=== PATIENT | male | born 1955 | race Caucasian/White ===

== ENCOUNTER 2017-11-09 04:53 | Observation (INO) | payer OTHER ==
[~2017-11-09] VITALS: Ht 185.4 cm; Wt 112.3 kg
[~2017-11-09 04:53] MED LIST: ACID BLOCKER; ALBU90OI61 INH; ALLO100 PO; ALLOPURINOL; AMLO10 PO; AMLO5; AMLO5 PO; AMLODIPINE; ASPI325; ASPI81CH; ASPI81CH PO; ATEN25 PO; ATEN50; ATEN50 PO; ATOR10 PO; ATOR20 PO; ATOR40TA; ATOR80 PO; AZIT250 PO; AZOR; BUME2 PO; CEPH500 PO; CITA20 PO; CITALOPRAM; CLIN300 PO; CLOP75 PO; COLCRYS0.6 MG PO; CRUTCH2 USE; CYCL10 PO; CYCL1OPSOA OP; Citalopram HBr40 MG PO; FOSI10; FOSI10 PO; FURO20 PO; FURO40 PO; HYDACE5 PO; HYDR1TAB94 PO; ISOMON20 PO; KETO10 PO; LASIX; LEVE500 PO; LEVFLO500 PO; LIPITOR; LISI20 PO; LISI5; LISI5 PO; LOSHYD100; LOVA20 PO; METO25 PO; METO25ER; METO50 PO; METO50ER; NAPR550 PO; NITR.3SL; NITR.3SL SL; NITR.4SL; NITR.4SL SL; NITR.4TPA; NITR.4TPA TOP; NITR2.5ER PO; NITRO; OLMESARTAN; OMEP20ER PO; ONDA4 PO; OXYACE5T PO; PARO20 PO; POTA10T PO; POTASSIUM; PRED20 PO; PROM25 PO; RANI150; RANI150 PO; RXNAPNA550 PO; Ranitidine HCl300 M1 PO; SILD50TA; SIMV20; SPIR25 PO; SPIR50 PO; TOBR.3OPSO OP; TORSE20 PO; WARF2 PO; WARF2.5 PO; WARF3 PO; WARF4 PO; WARF5 PO; XARELTO10 MG PO; ZANTAC; Zofran Odt4 MG SL
[2017-11-09 05:25] LABS: BASOPHILS ABSOLUTE AUTO 0.09 K/mm3 (0.00-0.23); BASOPHILS PERCENT AUTO 1 % (0-2); EOSINOPHILS ABSOLUTE AUTO 0.01 K/mm3 (0.00-0.68); EOSINOPHILS PERCENT AUTO 0 % (0-6); Hematocrit 43.3 % (37.0-53.0); Hemoglobin 14.7 g/dL (13.5-17.5); IMMATURE GRAN ABSOLUTE AUTO 0.05 K/mm3 (0.00-0.10); IMMATURE GRAN PERCENT AUTO 0 % (0-1); LYMPHOCYTES ABSOLUTE AUTO 1.08 K/mm3 (0.84-5.20); LYMPHOCYTES PERCENT AUTO 9 % (21-46); MONOCYTES ABSOLUTE AUTO 1.47 K/mm3 (0.16-1.47); MONOCYTES PERCENT AUTO 12 % (4-13); Mean Corpuscular HGB Conc 33.9 g/dL (31.5-36.5); Mean Corpuscular Volume 94 fL (80-100); Mean Platelet Volume 10.5 fL (9.1-12.4); NEUTROPHILS ABSOLUTE AUTO 9.87 K/mm3 (1.96-9.15); NEUTROPHILS PERCENT AUTO 79 % (41-73); Platelet Count 276 K/mm3 (150-400); RDW Coefficient Variation 14.3 % (11.7-14.2); RDW Standard Deviation 48.5 fL (35.1-46.3); White Blood Cell Count 12.57 K/mm3 (4.00-11.30)
[2017-11-09 05:48] LABS: Albumin, Blood 4.3 g/dL (3.4-5.0); Albumin/Globulin Ratio 0.9 (0.8-1.8); Bilirubin, Total 1.6 mg/dL (0.1-1.0); Bun/Creatinine Ratio 12.2 (12.0-20.0); Calcium, Blood 9.4 mg/dL (8.5-10.1); Creatinine, Blood 4.27 mg/dL (0.60-1.20); Globulin, Blood 4.7 g/dL (2.2-4.0); Potassium, Blood 3.8 mmol/L (3.5-5.5); Troponin I 0.186 ng/mL (0.000-0.040)
[2017-11-09 06:28] LABS: Creatine Kinase MB 6.9 ng/mL (0.0-3.6); Creatine Kinase MB Index 1.5 (0.0-4.0)
[2017-11-09 18:39] LABS: Source, Urine Clean Catch
[2017-11-09 18:54] LABS: U Amphetamine Screen DETECTED; U Barbituate Screen Not Detected; U Benzodiazapine Screen DETECTED; U Buprenorphine Screen Not Detected; U Cannabinoids Screen Not Detected; U Cocaine Screen Not Detected; U Methadone Screen Not Detected; U Methamphetamine Screen DETECTED; U Opiates Screen Not Detected; U Oxycodone Screen Not Detected; U Phencyclidine Screen Not Detected; U Propoxyphene Screen Not Detected
[2017-11-09 19:00] LABS: Appearance, Urine Clear (Clear); Bilirubin, Urine Neg (Neg); Blood, Urine 1+ (Neg); Color, Urine Yellow (P-Yellow); Glucose Qualitative, Urine Neg (Neg); Ketones, Urine Neg (Neg); Leukocyte Esterase, Urine Neg (Neg); Nitrite, Urine Neg (Neg); Protein, Urine 2+ (Neg); Urobilinogen, Urine NORM (Normal)
[2017-11-09 19:02] LABS: Bacteria Not Seen /hpf; Red Blood Cells, Urine 0-2 /hpf (0-2); Squamous Epithelial Cells Not Seen /hpf (Few); White Blood Cells, Urine 0-2 /hpf (0-5)
[2017-11-09] MEDS ORDERED: [UNRECOGNIZED DRUG - CODE] PO (19:51)
[2017-11-09] MEDS ORDERED: [UNRECOGNIZED DRUG - CODE] PO (19:53)
[2017-11-10 05:20] LABS: BASOPHILS ABSOLUTE AUTO 0.04 K/mm3 (0.00-0.23); BASOPHILS PERCENT AUTO 1 % (0-2); EOSINOPHILS PERCENT AUTO 1 % (0-6); Hematocrit 40.3 % (37.0-53.0); Hemoglobin 13.4 g/dL (13.5-17.5); IMMATURE GRAN ABSOLUTE AUTO 0.03 K/mm3 (0.00-0.10); IMMATURE GRAN PERCENT AUTO 0 % (0-1); LYMPHOCYTES ABSOLUTE AUTO 1.52 K/mm3 (0.84-5.20); LYMPHOCYTES PERCENT AUTO 19 % (21-46); MONOCYTES ABSOLUTE AUTO 1.05 K/mm3 (0.16-1.47); MONOCYTES PERCENT AUTO 13 % (4-13); Mean Corpuscular HGB 31.9 pg (26.0-34.0); Mean Corpuscular HGB Conc 33.3 g/dL (31.5-36.5); Mean Corpuscular Volume 96 fL (80-100); Mean Platelet Volume 10.8 fL (9.1-12.4); NEUTROPHILS ABSOLUTE AUTO 5.26 K/mm3 (1.96-9.15); NEUTROPHILS PERCENT AUTO 66 % (41-73); Platelet Count 203 K/mm3 (150-400); RDW Coefficient Variation 14.2 % (11.7-14.2); RDW Standard Deviation 49.9 fL (35.1-46.3)
[2017-11-10 05:47] LABS: Magnesium, Blood 2.2 mg/dL (1.6-2.4)
[2017-11-10 05:50] LABS: Albumin, Blood 3.5 g/dL (3.4-5.0); Anion Gap 11 mmol/L (6-16); Blood Urea Nitrogen 52 mg/dL (8-24); Bun/Creatinine Ratio 17.7 (12.0-20.0); CO2, Blood 23 mmol/L (21-32); CPK Creatine Kinase 444 U/L (39-308); Calcium, Blood 8.5 mg/dL (8.5-10.1); Chloride, Blood 109 mmol/L (98-108); Creatinine, Blood 2.94 mg/dL (0.60-1.20); Glomerular Filtration Rate 23 (60-); Glucose, Blood 87 mg/dL (70-99); Phosphorus, Blood 2.7 mg/dL (2.5-4.9); Potassium, Blood 3.6 mmol/L (3.5-5.5); Sodium, Blood 143 mmol/L (136-145)
[2017-11-11 05:20] LABS: BASOPHILS ABSOLUTE AUTO 0.04 K/mm3 (0.00-0.23); BASOPHILS PERCENT AUTO 1 % (0-2); EOSINOPHILS ABSOLUTE AUTO 0.15 K/mm3 (0.00-0.68); EOSINOPHILS PERCENT AUTO 2 % (0-6); Hematocrit 35.5 % (37.0-53.0); Hemoglobin 11.9 g/dL (13.5-17.5); IMMATURE GRAN ABSOLUTE AUTO 0.02 K/mm3 (0.00-0.10); IMMATURE GRAN PERCENT AUTO 0 % (0-1); LYMPHOCYTES ABSOLUTE AUTO 1.63 K/mm3 (0.84-5.20); LYMPHOCYTES PERCENT AUTO 24 % (21-46); MONOCYTES ABSOLUTE AUTO 1.03 K/mm3 (0.16-1.47); MONOCYTES PERCENT AUTO 15 % (4-13); Mean Corpuscular HGB 31.7 pg (26.0-34.0); Mean Corpuscular HGB Conc 33.5 g/dL (31.5-36.5); Mean Corpuscular Volume 95 fL (80-100); Mean Platelet Volume 10.9 fL (9.1-12.4); NEUTROPHILS ABSOLUTE AUTO 3.98 K/mm3 (1.96-9.15); NEUTROPHILS PERCENT AUTO 58 % (41-73); Platelet Count 194 K/mm3 (150-400); RDW Coefficient Variation 13.9 % (11.7-14.2); RDW Standard Deviation 48.6 fL (35.1-46.3); Red Blood Cell Count 3.75 M/mm3 (4.30-5.90); White Blood Cell Count 6.85 K/mm3 (4.00-11.30)
[2017-11-11 05:49] LABS: Magnesium, Blood 1.9 mg/dL (1.6-2.4)
[2017-11-11 05:56] LABS: Albumin, Blood 3.1 g/dL (3.4-5.0); Anion Gap 10 mmol/L (6-16); Blood Urea Nitrogen 48 mg/dL (8-24); Bun/Creatinine Ratio 24.2 (12.0-20.0); CO2, Blood 27 mmol/L (21-32); Calcium, Blood 8.3 mg/dL (8.5-10.1); Chloride, Blood 105 mmol/L (98-108); Creatinine, Blood 1.98 mg/dL (0.60-1.20); Glomerular Filtration Rate 37 (60-); Glucose, Blood 95 mg/dL (70-99); Phosphorus, Blood 2.4 mg/dL (2.5-4.9); Potassium, Blood 3.2 mmol/L (3.5-5.5); Sodium, Blood 142 mmol/L (136-145)
[2017-11-11] MEDS ORDERED: ACETAMINOPHEN500 MG PO (14:43)
== END 2017-11-11 17:13 | disposition home or self-care (01) ==
LOC: ER 04:53 → ERHOLD 04:54 → PCU 06:17 → ERHOLD 06:17 → ER 06:17 → PCU 12:39 → ERHOLD 12:39 → PCU 12:57
PROVIDERS: Emergency Medicine; Internal Medicine Endocrinology, Diabetes & Metabolism
DX: G92 Toxic encephalopathy (principal); F15.129 Other stimulant abuse with intoxication, unspecified; I13.0 Hypertensive heart and chronic kidney disease with heart failure and stage 1 through stage 4 chronic kidney disease, or unspecified chronic kidney disease; I50.22 Chronic systolic (congestive) heart failure; N18.3 Chronic kidney disease, stage 3 (moderate); I48.2 Chronic atrial fibrillation; E78.5 Hyperlipidemia, unspecified; F32.9 Major depressive disorder, single episode, unspecified; Z87.891 Personal history of nicotine dependence; E78.00 Pure hypercholesterolemia, unspecified; G47.33 Obstructive sleep apnea (adult) (pediatric); I25.10 Atherosclerotic heart disease of native coronary artery without angina pectoris; Z95.1 Presence of aortocoronary bypass graft
CPT/HCPCS: 36415; 71046; 73502; 76770; 80053; 80069; 81001; 82550; 82553; 83690; 83735; 84484; 85025; 87086; 93005; 93010; 96361; 96374; 97161; 97165; 99285; C9113; G0378; G8978; G8979; G8980; G8987; G8988; G8989; J2060; J3480; J7030; J7050; J7070

== ENCOUNTER 2017-11-24 07:50 | Emergency (ER) | payer OTHER ==
[~2017-11-24] VITALS: Ht 182.9 cm; Wt 115.2 kg
[~2017-11-24 07:50] MED LIST changes: +ACETAMINOPHEN500 MG PO; +[UNRECOGNIZED DRUG - CODE] PO; +[UNRECOGNIZED DRUG - CODE] PO
== END 2017-11-24 08:25 | disposition left against medical advice (07) ==
LOC: ER 07:50
DX: R07.9 Chest pain, unspecified (principal); I48.91 Unspecified atrial fibrillation; I11.0 Hypertensive heart disease with heart failure; I50.9 Heart failure, unspecified; E78.00 Pure hypercholesterolemia, unspecified; Z88.8 Allergy status to other drugs, medicaments and biological substances; Z91.012 Allergy to eggs; Z79.899 Other long term (current) drug therapy
CPT/HCPCS: 93005; 93010; 99284

== ENCOUNTER 2017-12-29 19:46 | Observation (INO) | payer OTHER ==
[~2017-12-29] VITALS: Ht 185.4 cm; Wt 114.3 kg
[~2017-12-29 19:46] MED LIST changes: +CRUTCH4 XX
[2017-12-29 20:13] LABS: BASOPHILS ABSOLUTE AUTO 0.06 K/mm3 (0.00-0.23); BASOPHILS PERCENT AUTO 1 % (0-2); EOSINOPHILS ABSOLUTE AUTO 0.22 K/mm3 (0.00-0.68); EOSINOPHILS PERCENT AUTO 3 % (0-6); Hematocrit 39.6 % (37.0-53.0); Hemoglobin 13.1 g/dL (13.5-17.5); IMMATURE GRAN ABSOLUTE AUTO 0.02 K/mm3 (0.00-0.10); IMMATURE GRAN PERCENT AUTO 0 % (0-1); LYMPHOCYTES ABSOLUTE AUTO 1.78 K/mm3 (0.84-5.20); LYMPHOCYTES PERCENT AUTO 21 % (21-46); MONOCYTES ABSOLUTE AUTO 1.12 K/mm3 (0.16-1.47); MONOCYTES PERCENT AUTO 13 % (4-13); Mean Corpuscular HGB 31.9 pg (26.0-34.0); Mean Corpuscular HGB Conc 33.1 g/dL (31.5-36.5); Mean Corpuscular Volume 96 fL (80-100); Mean Platelet Volume 9.7 fL (9.1-12.4); NEUTROPHILS ABSOLUTE AUTO 5.21 K/mm3 (1.96-9.15); NEUTROPHILS PERCENT AUTO 62 % (41-73); Platelet Count 300 K/mm3 (150-400); RDW Coefficient Variation 13.8 % (11.7-14.2); RDW Standard Deviation 49.5 fL (35.1-46.3); Red Blood Cell Count 4.11 M/mm3 (4.30-5.90); White Blood Cell Count 8.41 K/mm3 (4.00-11.30)
[2017-12-29 20:31] LABS: Albumin, Blood 3.5 g/dL (3.4-5.0); Albumin/Globulin Ratio 0.9 (0.8-1.8); Bilirubin, Total 0.6 mg/dL (0.1-1.0); Calcium, Blood 8.7 mg/dL (8.5-10.1); Creatinine, Blood 3.24 mg/dL (0.60-1.20); Globulin, Blood 4.1 g/dL (2.2-4.0); Potassium, Blood 4.1 mmol/L (3.5-5.5); Total Protein, Blood 7.6 g/dL (6.4-8.2); Troponin I 0.087 ng/mL (0.000-0.040)
[2017-12-29 22:53] LABS: Source, Urine Clean Catch
[2017-12-29 22:55] LABS: Bilirubin, Urine Neg (Neg); Blood, Urine Neg (Neg); Glucose Qualitative, Urine Neg (Neg); Ketones, Urine Neg (Neg); Leukocyte Esterase, Urine Neg (Neg); Nitrite, Urine Neg (Neg); Protein, Urine Neg (Neg); Urobilinogen, Urine NORM (Normal)
[2017-12-29 22:59] LABS: Appearance, Urine Clear (Clear); Color, Urine Yellow (P-Yellow)
[2017-12-29 23:07] LABS: U Amphetamine Screen DETECTED
[2017-12-29 23:08] LABS: U Barbituate Screen Not Detected; U Benzodiazapine Screen Not Detected; U Buprenorphine Screen Not Detected; U Cannabinoids Screen DETECTED; U Cocaine Screen Not Detected; U Methadone Screen Not Detected; U Methamphetamine Screen DETECTED; U Opiates Screen DETECTED; U Oxycodone Screen Not Detected; U Phencyclidine Screen Not Detected; U Propoxyphene Screen Not Detected
[2017-12-30 04:34] LABS: Hematocrit 38.6 % (37.0-53.0); Hemoglobin 12.6 g/dL (13.5-17.5); Mean Corpuscular HGB 31.8 pg (26.0-34.0); Mean Corpuscular HGB Conc 32.6 g/dL (31.5-36.5); Mean Corpuscular Volume 98 fL (80-100); Mean Platelet Volume 9.8 fL (9.1-12.4); Platelet Count 257 K/mm3 (150-400); RDW Coefficient Variation 13.7 % (11.7-14.2); RDW Standard Deviation 49.1 fL (35.1-46.3); Red Blood Cell Count 3.96 M/mm3 (4.30-5.90); White Blood Cell Count 8.22 K/mm3 (4.00-11.30)
[2017-12-30 04:55] LABS: Albumin, Blood 3.1 g/dL (3.4-5.0); Albumin/Globulin Ratio 0.8 (0.8-1.8); Bilirubin, Total 0.5 mg/dL (0.1-1.0); Calcium, Blood 7.7 mg/dL (8.5-10.1); Creatinine, Blood 2.75 mg/dL (0.60-1.20); Potassium, Blood 3.9 mmol/L (3.5-5.5); Total Protein, Blood 7.1 g/dL (6.4-8.2)
[2017-12-30 05:04] LABS: Troponin I 0.061 ng/mL (0.000-0.040)
[2017-12-30 12:30] LABS: Troponin I 0.045 ng/mL (0.000-0.040)
[2017-12-30 20:21] LABS: Troponin I 0.044 ng/mL (0.000-0.040)
[2017-12-31 05:36] LABS: Hematocrit 41.3 % (37.0-53.0); Hemoglobin 13.5 g/dL (13.5-17.5)
[2017-12-31 06:05] LABS: Albumin, Blood 3.3 g/dL (3.4-5.0); Anion Gap 9 mmol/L (6-16); Blood Urea Nitrogen 40 mg/dL (8-24); Bun/Creatinine Ratio 22.9 (12.0-20.0); CO2, Blood 23 mmol/L (21-32); Calcium, Blood 8.5 mg/dL (8.5-10.1); Chloride, Blood 108 mmol/L (98-108); Creatinine, Blood 1.75 mg/dL (0.60-1.20); Glomerular Filtration Rate 42 (60-); Glucose, Blood 90 mg/dL (70-99); Magnesium, Blood 1.7 mg/dL (1.6-2.4); Phosphorus, Blood 2.7 mg/dL (2.5-4.9); Potassium, Blood 4.7 mmol/L (3.5-5.5); Sodium, Blood 140 mmol/L (136-145)
[2017-12-31] MEDS ORDERED: DOCU100 PO (13:56)
== END 2017-12-31 14:29 | disposition home or self-care (01) ==
LOC: ER 19:46 → MEDS 19:47 → ENPENDDIS 12-31 14:00 → MEDS 12-31 14:29
PROVIDERS: Emergency Medicine; Internal Medicine; Internal Medicine Nephrology
DX: R55 Syncope and collapse (principal); N17.0 Acute kidney failure with tubular necrosis; E86.0 Dehydration; I50.22 Chronic systolic (congestive) heart failure; I13.0 Hypertensive heart and chronic kidney disease with heart failure and stage 1 through stage 4 chronic kidney disease, or unspecified chronic kidney disease; N18.3 Chronic kidney disease, stage 3 (moderate); D63.1 Anemia in chronic kidney disease; S70.01XA Contusion of right hip, initial encounter; E86.9 Volume depletion, unspecified; I25.5 Ischemic cardiomyopathy; I48.2 Chronic atrial fibrillation; F15.10 Other stimulant abuse, uncomplicated; E88.09 Other disorders of plasma-protein metabolism, not elsewhere classified; I25.10 Atherosclerotic heart disease of native coronary artery without angina pectoris; F32.9 Major depressive disorder, single episode, unspecified; Z88.8 Allergy status to other drugs, medicaments and biological substances; Z79.899 Other long term (current) drug therapy; Z95.1 Presence of aortocoronary bypass graft; Z86.19 Personal history of other infectious and parasitic diseases
CPT/HCPCS: 36415; 36416; 71046; 76770; 80053; 80069; 81003; 82550; 83735; 83880; 84484; 85014; 85018; 85025; 85027; 85379; 87086; 93005; 93010; 94760; 96360; 96361; 96372; 99285-25; C8929; G0378; J1650; J7030; Q9957

== ENCOUNTER 2018-02-10 11:02 | Emergency (ER) | payer OTHER ==
[~2018-02-10] VITALS: Ht 185.4 cm; Wt 108.9 kg
[~2018-02-10 11:02] MED LIST changes: +DOCU100 PO
[2018-02-10 11:39] LABS: BASOPHILS ABSOLUTE AUTO 0.09 K/mm3 (0.00-0.23); BASOPHILS PERCENT AUTO 1 % (0-2); EOSINOPHILS ABSOLUTE AUTO 0.16 K/mm3 (0.00-0.68); EOSINOPHILS PERCENT AUTO 2 % (0-6); Hemoglobin 13.8 g/dL (13.5-17.5); IMMATURE GRAN ABSOLUTE AUTO 0.01 K/mm3 (0.00-0.10); IMMATURE GRAN PERCENT AUTO 0 % (0-1); LYMPHOCYTES ABSOLUTE AUTO 1.58 K/mm3 (0.84-5.20); LYMPHOCYTES PERCENT AUTO 21 % (21-46); MONOCYTES ABSOLUTE AUTO 0.89 K/mm3 (0.16-1.47); MONOCYTES PERCENT AUTO 12 % (4-13); Mean Corpuscular HGB Conc 32.9 g/dL (31.5-36.5); Mean Corpuscular Volume 94 fL (80-100); Mean Platelet Volume 9.7 fL (9.1-12.4); NEUTROPHILS ABSOLUTE AUTO 4.97 K/mm3 (1.96-9.15); NEUTROPHILS PERCENT AUTO 65 % (41-73); Platelet Count 306 K/mm3 (150-400); RDW Coefficient Variation 13.2 % (11.7-14.2); RDW Standard Deviation 46.6 fL (35.1-46.3); Red Blood Cell Count 4.45 M/mm3 (4.30-5.90)
[2018-02-10 11:58] LABS: Bun/Creatinine Ratio 10.6 (12.0-20.0); Calcium, Blood 8.9 mg/dL (8.5-10.1); Creatinine, Blood 1.6 mg/dL (0.60-1.20); Potassium, Blood 3.1 mmol/L (3.5-5.5); Troponin I 0.089 ng/mL (0.000-0.040)
[2018-02-10 11:59] LABS: Albumin, Blood 3.9 g/dL (3.4-5.0); Albumin/Globulin Ratio 0.8 (0.8-1.8); Bilirubin, Total 1.1 mg/dL (0.1-1.0); Globulin, Blood 4.7 g/dL (2.2-4.0); Total Protein, Blood 8.6 g/dL (6.4-8.2)
== END 2018-02-10 17:06 | disposition home or self-care (01) ==
LOC: ER 11:02
PROVIDERS: Emergency Medicine
DX: I20.8 Other forms of angina pectoris (principal); E87.6 Hypokalemia; I48.91 Unspecified atrial fibrillation; I50.9 Heart failure, unspecified; Z95.1 Presence of aortocoronary bypass graft; Z87.891 Personal history of nicotine dependence
CPT/HCPCS: 36415; 71046; 80053; 83880; 84484; 85025; 93005; 93010; 99284-25

== ENCOUNTER 2018-02-19 16:17 | Emergency (ER) | payer OTHER ==
[~2018-02-19] VITALS: Ht 185.4 cm; Wt 112.9 kg
[2018-02-19 16:48] LABS: BASOPHILS ABSOLUTE AUTO 0.06 K/mm3 (0.00-0.23); BASOPHILS PERCENT AUTO 1 % (0-2); EOSINOPHILS ABSOLUTE AUTO 0.12 K/mm3 (0.00-0.68); EOSINOPHILS PERCENT AUTO 1 % (0-6); Hematocrit 40.2 % (37.0-53.0); Hemoglobin 12.7 g/dL (13.5-17.5); IMMATURE GRAN ABSOLUTE AUTO 0.02 K/mm3 (0.00-0.10); IMMATURE GRAN PERCENT AUTO 0 % (0-1); LYMPHOCYTES ABSOLUTE AUTO 1.29 K/mm3 (0.84-5.20); LYMPHOCYTES PERCENT AUTO 14 % (21-46); MONOCYTES ABSOLUTE AUTO 1.12 K/mm3 (0.16-1.47); MONOCYTES PERCENT AUTO 12 % (4-13); Mean Corpuscular HGB 30.7 pg (26.0-34.0); Mean Corpuscular HGB Conc 31.6 g/dL (31.5-36.5); Mean Platelet Volume 10.2 fL (9.1-12.4); NEUTROPHILS ABSOLUTE AUTO 6.64 K/mm3 (1.96-9.15); NEUTROPHILS PERCENT AUTO 72 % (41-73); Platelet Count 278 K/mm3 (150-400); RDW Coefficient Variation 13.3 % (11.7-14.2); RDW Standard Deviation 48.1 fL (35.1-46.3); Red Blood Cell Count 4.14 M/mm3 (4.30-5.90); White Blood Cell Count 9.25 K/mm3 (4.00-11.30)
[2018-02-19 16:52] LABS: Mean Corpuscular Volume 97 fL (80-100)
[2018-02-19 16:59] LABS: International Normalized Ratio 1.11; Prothrombin Time Results 11.4 Sec (9.7-11.5)
[2018-02-19 17:08] LABS: Albumin, Blood 3.6 g/dL (3.4-5.0); Albumin/Globulin Ratio 0.8 (0.8-1.8); Bilirubin, Total 1.4 mg/dL (0.1-1.0); Bun/Creatinine Ratio 12.3 (12.0-20.0); Creatinine, Blood 1.46 mg/dL (0.60-1.20); Globulin, Blood 4.5 g/dL (2.2-4.0); Potassium, Blood 3.8 mmol/L (3.5-5.5); Total Protein, Blood 8.1 g/dL (6.4-8.2); Troponin I 0.052 ng/mL (0.000-0.040)
[2018-02-19] MEDS ORDERED: COMBIVENT RESPIM4 GM INH (18:15)
[2018-02-19] MEDS ORDERED: LEVO750 PO (18:39)
== END 2018-02-19 19:46 | disposition home or self-care (01) ==
LOC: ER 16:17
PROVIDERS: Internal Medicine
DX: J18.9 Pneumonia, unspecified organism (principal); I50.9 Heart failure, unspecified; I48.91 Unspecified atrial fibrillation; I25.2 Old myocardial infarction; Z88.8 Allergy status to other drugs, medicaments and biological substances; Z91.012 Allergy to eggs; Z79.899 Other long term (current) drug therapy; Z79.01 Long term (current) use of anticoagulants; Z79.51 Long term (current) use of inhaled steroids; Z87.891 Personal history of nicotine dependence
CPT/HCPCS: 36415; 71046; 80053; 83880; 84484; 85025; 85610; 93005; 93010; 94640; 99284-25

== ENCOUNTER 2018-02-21 18:36 | Emergency (ER) | payer OTHER ==
[~2018-02-21] VITALS: Ht 177.8 cm; Wt 104.3 kg
[~2018-02-21 18:36] MED LIST changes: +COMBIVENT RESPIM4 GM INH; +LEVO750 PO
[2018-02-21 19:15] LABS: BASOPHILS ABSOLUTE AUTO 0.06 K/mm3 (0.00-0.23); BASOPHILS PERCENT AUTO 1 % (0-2); EOSINOPHILS ABSOLUTE AUTO 0.09 K/mm3 (0.00-0.68); EOSINOPHILS PERCENT AUTO 1 % (0-6); Hematocrit 40.5 % (37.0-53.0); Hemoglobin 13.1 g/dL (13.5-17.5); IMMATURE GRAN ABSOLUTE AUTO 0.03 K/mm3 (0.00-0.10); IMMATURE GRAN PERCENT AUTO 0 % (0-1); LYMPHOCYTES ABSOLUTE AUTO 1.09 K/mm3 (0.84-5.20); LYMPHOCYTES PERCENT AUTO 11 % (21-46); MONOCYTES ABSOLUTE AUTO 1.66 K/mm3 (0.16-1.47); MONOCYTES PERCENT AUTO 16 % (4-13); Mean Corpuscular HGB 30.8 pg (26.0-34.0); Mean Corpuscular HGB Conc 32.3 g/dL (31.5-36.5); Mean Corpuscular Volume 95 fL (80-100); Mean Platelet Volume 10.3 fL (9.1-12.4); NEUTROPHILS ABSOLUTE AUTO 7.38 K/mm3 (1.96-9.15); NEUTROPHILS PERCENT AUTO 72 % (41-73); Platelet Count 304 K/mm3 (150-400); RDW Coefficient Variation 13.5 % (11.7-14.2); RDW Standard Deviation 47.3 fL (35.1-46.3); Red Blood Cell Count 4.26 M/mm3 (4.30-5.90); White Blood Cell Count 10.31 K/mm3 (4.00-11.30)
[2018-02-21 19:32] LABS: Albumin, Blood 3.5 g/dL (3.4-5.0); Albumin/Globulin Ratio 0.7 (0.8-1.8); Bilirubin, Total 1.3 mg/dL (0.1-1.0); Bun/Creatinine Ratio 12.1 (12.0-20.0); Creatinine, Blood 1.9 mg/dL (0.60-1.20); Globulin, Blood 4.7 g/dL (2.2-4.0); Potassium, Blood 3.9 mmol/L (3.5-5.5); Total Protein, Blood 8.2 g/dL (6.4-8.2); Troponin I 0.068 ng/mL (0.000-0.040)
[2018-02-21] MEDS ORDERED: Isosorbide Dini30 MG PO (21:35)
== END 2018-02-21 22:45 | disposition home or self-care (01) ==
LOC: ER 18:36
PROVIDERS: Emergency Medicine
DX: I50.9 Heart failure, unspecified (principal); I25.10 Atherosclerotic heart disease of native coronary artery without angina pectoris; I48.91 Unspecified atrial fibrillation; I25.2 Old myocardial infarction; F17.200 Nicotine dependence, unspecified, uncomplicated; Z88.8 Allergy status to other drugs, medicaments and biological substances; Z91.012 Allergy to eggs; Z79.01 Long term (current) use of anticoagulants; Z79.899 Other long term (current) drug therapy; Z79.51 Long term (current) use of inhaled steroids
CPT/HCPCS: 36415; 71046; 80053; 83880; 84484; 85025; 93005; 93010; 99285-25

== ENCOUNTER 2018-05-16 22:07 | Observation (INO) | payer OTHER ==
[~2018-05-16] VITALS: Ht 177.8 cm; Wt 104.3 kg
[~2018-05-16 22:07] MED LIST changes: +Isosorbide Dini30 MG PO
[2018-05-16 22:57] LABS: BASOPHILS ABSOLUTE AUTO 0.07 K/mm3 (0.00-0.23); BASOPHILS PERCENT AUTO 1 % (0-2); EOSINOPHILS ABSOLUTE AUTO 0.16 K/mm3 (0.00-0.68); EOSINOPHILS PERCENT AUTO 2 % (0-6); Hematocrit 40.7 % (37.0-53.0); Hemoglobin 13.1 g/dL (13.5-17.5); IMMATURE GRAN ABSOLUTE AUTO 0.02 K/mm3 (0.00-0.10); IMMATURE GRAN PERCENT AUTO 0 % (0-1); LYMPHOCYTES ABSOLUTE AUTO 1.43 K/mm3 (0.84-5.20); LYMPHOCYTES PERCENT AUTO 21 % (21-46); MONOCYTES ABSOLUTE AUTO 0.98 K/mm3 (0.16-1.47); MONOCYTES PERCENT AUTO 14 % (4-13); Mean Corpuscular HGB 30.9 pg (26.0-34.0); Mean Corpuscular HGB Conc 32.2 g/dL (31.5-36.5); Mean Corpuscular Volume 96 fL (80-100); Mean Platelet Volume 10.2 fL (9.1-12.4); NEUTROPHILS PERCENT AUTO 62 % (41-73); Platelet Count 225 K/mm3 (150-400); RDW Coefficient Variation 15.5 % (11.7-14.2); RDW Standard Deviation 54.5 fL (35.1-46.3); Red Blood Cell Count 4.24 M/mm3 (4.30-5.90); White Blood Cell Count 6.96 K/mm3 (4.00-11.30)
[2018-05-16 23:06] LABS: Source, Urine Clean Catch
[2018-05-16 23:09] LABS: Bilirubin, Urine Neg (Neg); Blood, Urine Neg (Neg); Glucose Qualitative, Urine Neg (Neg); Ketones, Urine Neg (Neg); Leukocyte Esterase, Urine Neg (Neg); Nitrite, Urine Neg (Neg); Protein, Urine Neg (Neg); Specific Gravity, Urine 1.015 (1.003-1.022); Urobilinogen, Urine NORM (Normal)
[2018-05-16 23:15] LABS: Appearance, Urine Clear (Clear); Color, Urine Yellow (P-Yellow)
[2018-05-16 23:21] LABS: Alanine Aminotransfer (ALT/SGP 42 U/L (12-78); Albumin, Blood 3.5 g/dL (3.4-5.0); Albumin/Globulin Ratio 0.8 (0.8-1.8); Alk Phos 137 U/L (50-136); Anion Gap 9 mmol/L (6-16); Aspartate Aminotrans (AST/SGOT 32 U/L (12-37); Bilirubin, Total 0.6 mg/dL (0.1-1.0); Blood Urea Nitrogen 34 mg/dL (8-24); Bun/Creatinine Ratio 16.3 (12.0-20.0); CO2, Blood 27 mmol/L (21-32); Calcium, Blood 8.1 mg/dL (8.5-10.1); Chloride, Blood 106 mmol/L (98-108); Creatinine, Blood 2.08 mg/dL (0.60-1.20); Globulin, Blood 4.5 g/dL (2.2-4.0); Glomerular Filtration Rate 35 (60-); Glucose, Blood 120 mg/dL (70-99); Potassium, Blood 3.7 mmol/L (3.5-5.5); Salicylate <1.7 mg/dL (2.8-20.0); Sodium, Blood 142 mmol/L (136-145)
[2018-05-16 23:25] LABS: Acetaminophen, Random <2.0 ug/mL (10.0-30.0); Ethanol (Alcohol), Blood, Med <3 mg/dL
[2018-05-16 23:26] LABS: U Amphetamine Screen DETECTED; U Barbituate Screen Not Detected; U Benzodiazapine Screen Not Detected; U Buprenorphine Screen Not Detected; U Cannabinoids Screen Not Detected; U Cocaine Screen Not Detected; U Methadone Screen Not Detected; U Methamphetamine Screen DETECTED; U Opiates Screen Not Detected; U Oxycodone Screen Not Detected; U Phencyclidine Screen Not Detected; U Propoxyphene Screen Not Detected
== END 2018-05-17 10:56 | disposition home or self-care (01) ==
LOC: ER 22:07 → EOR 22:08
PROVIDERS: Emergency Medicine
DX: F15.159 Other stimulant abuse with stimulant-induced psychotic disorder, unspecified (principal); I25.10 Atherosclerotic heart disease of native coronary artery without angina pectoris; Z88.8 Allergy status to other drugs, medicaments and biological substances; Z79.899 Other long term (current) drug therapy; Z95.1 Presence of aortocoronary bypass graft; Z79.2 Long term (current) use of antibiotics; Z79.02 Long term (current) use of antithrombotics/antiplatelets; Z91.14 Patient's other noncompliance with medication regimen
CPT/HCPCS: 70450; 80053; 81003; 84443; 85025; G0480; J7030

== ENCOUNTER → 2018-06-28 | Outpatient (CLI) | payer OTHER ==
[2018-06-28 18:36] LABS: BASOPHILS ABSOLUTE AUTO 0.13 K/mm3 (0.00-0.23); BASOPHILS PERCENT AUTO 1 % (0-2); EOSINOPHILS ABSOLUTE AUTO 0.13 K/mm3 (0.00-0.68); EOSINOPHILS PERCENT AUTO 1 % (0-6); Hematocrit 43.2 % (37.0-53.0); Hemoglobin 13.9 g/dL (13.5-17.5); IMMATURE GRAN ABSOLUTE AUTO 0.07 K/mm3 (0.00-0.10); IMMATURE GRAN PERCENT AUTO 1 % (0-1); LYMPHOCYTES ABSOLUTE AUTO 1.43 K/mm3 (0.84-5.20); LYMPHOCYTES PERCENT AUTO 15 % (21-46); MONOCYTES ABSOLUTE AUTO 1.46 K/mm3 (0.16-1.47); MONOCYTES PERCENT AUTO 16 % (4-13); Mean Corpuscular HGB 30.9 pg (26.0-34.0); Mean Corpuscular HGB Conc 32.2 g/dL (31.5-36.5); Mean Corpuscular Volume 96 fL (80-100); Mean Platelet Volume 11.4 fL (9.1-12.4); NEUTROPHILS ABSOLUTE AUTO 6.06 K/mm3 (1.96-9.15); NEUTROPHILS PERCENT AUTO 65 % (41-73); Platelet Count 229 K/mm3 (150-400); RDW Coefficient Variation 14.8 % (11.7-14.2); RDW Standard Deviation 51.7 fL (35.1-46.3); White Blood Cell Count 9.28 K/mm3 (4.00-11.30)
[2018-06-28 19:51] LABS: Alanine Aminotransfer (ALT/SGP 28 U/L (12-78); Albumin, Blood 3.7 g/dL (3.4-5.0); Albumin/Globulin Ratio 0.8 (0.8-1.8); Alk Phos 143 U/L (50-136); Anion Gap 9 mmol/L (6-16); Aspartate Aminotrans (AST/SGOT 23 U/L (12-37); Bilirubin, Total 2.1 mg/dL (0.1-1.0); Blood Urea Nitrogen 22 mg/dL (8-24); CHOL/HDL RATIO 2.7; CO2, Blood 27 mmol/L (21-32); Calcium, Blood 8.5 mg/dL (8.5-10.1); Chloride, Blood 102 mmol/L (98-108); Cholesterol 97 mg/dL (50-200); Creatinine, Blood 1.47 mg/dL (0.60-1.20); Free Thyroxine 1.41 ng/dL (0.70-1.60); Globulin, Blood 4.5 g/dL (2.2-4.0); Glomerular Filtration Rate 52 (60-); Glucose, Blood 94 mg/dL (70-99); HDL Cholesterol 36 mg/dL (>39); LDL/HDL RATIO 1.1; Low Density Lipoprotein Chol 39 mg/dL (0-110); Potassium, Blood 3.9 mmol/L (3.5-5.5); Sodium, Blood 138 mmol/L (136-145); Total Protein, Blood 8.2 g/dL (6.4-8.2); Triglycerides 110 mg/dL (30-160); Uric Acid, Blood 10.4 mg/dL (3.5-7.2); Very Low Density Lipoprot Chol 22 mg/dL (6-32)
== END ==
LOC: LAB SHORT 18:10 → LAB 18:10
PROVIDERS: Nurse Practitioner Family
DX: M10.9 Gout, unspecified (principal); I50.9 Heart failure, unspecified; I10 Essential (primary) hypertension
CPT/HCPCS: 80053; 80061; 83880; 84439; 84443; 84550; 85025

== ENCOUNTER 2018-07-04 15:05 | Emergency (ER) | payer OTHER ==
[~2018-07-04] VITALS: Ht 185.4 cm; Wt 108.9 kg
[2018-07-04 16:07] LABS: BASOPHILS PERCENT AUTO 1 % (0-2); EOSINOPHILS ABSOLUTE AUTO 0.08 K/mm3 (0.00-0.68); EOSINOPHILS PERCENT AUTO 1 % (0-6); Hematocrit 41.7 % (37.0-53.0); Hemoglobin 13.2 g/dL (13.5-17.5); IMMATURE GRAN ABSOLUTE AUTO 0.03 K/mm3 (0.00-0.10); IMMATURE GRAN PERCENT AUTO 0 % (0-1); LYMPHOCYTES ABSOLUTE AUTO 1.46 K/mm3 (0.84-5.20); LYMPHOCYTES PERCENT AUTO 15 % (21-46); MONOCYTES ABSOLUTE AUTO 1.16 K/mm3 (0.16-1.47); MONOCYTES PERCENT AUTO 12 % (4-13); Mean Corpuscular HGB 30.7 pg (26.0-34.0); Mean Corpuscular HGB Conc 31.7 g/dL (31.5-36.5); Mean Corpuscular Volume 97 fL (80-100); Mean Platelet Volume 9.9 fL (9.1-12.4); NEUTROPHILS ABSOLUTE AUTO 6.67 K/mm3 (1.96-9.15); NEUTROPHILS PERCENT AUTO 70 % (41-73); Platelet Count 262 K/mm3 (150-400); RDW Coefficient Variation 14.7 % (11.7-14.2); RDW Standard Deviation 52.1 fL (35.1-46.3)
[2018-07-04 16:39] LABS: Albumin, Blood 3.8 g/dL (3.4-5.0); Albumin/Globulin Ratio 0.9 (0.8-1.8); Bilirubin, Total 1.5 mg/dL (0.1-1.0); Bun/Creatinine Ratio 16.9 (12.0-20.0); Calcium, Blood 9.1 mg/dL (8.5-10.1); Creatinine, Blood 1.36 mg/dL (0.60-1.20); Globulin, Blood 4.3 g/dL (2.2-4.0); Potassium, Blood 3.7 mmol/L (3.5-5.5); Total Protein, Blood 8.1 g/dL (6.4-8.2); Troponin I 0.078 ng/mL (0.000-0.040)
== END 2018-07-04 18:15 | disposition home or self-care (01) ==
LOC: ER 15:05
PROVIDERS: Physician Assistant
DX: I50.9 Heart failure, unspecified (principal); N18.9 Chronic kidney disease, unspecified; I48.91 Unspecified atrial fibrillation; Z91.012 Allergy to eggs; Z88.8 Allergy status to other drugs, medicaments and biological substances; Z79.899 Other long term (current) drug therapy; I25.2 Old myocardial infarction; Z87.891 Personal history of nicotine dependence
CPT/HCPCS: 36415; 71046; 80053; 83880; 84484; 85025; 93005; 93010; 94640; 99285-25

== ENCOUNTER 2018-08-08 17:47 | Inpatient (IN) | payer OTHER ==
[~2018-08-08] VITALS: Ht 185.4 cm; Wt 106.9 kg
[2018-08-08 18:36] LABS: BASOPHILS ABSOLUTE AUTO 0.05 K/mm3 (0.00-0.23); BASOPHILS PERCENT AUTO 0 % (0-2); EOSINOPHILS ABSOLUTE AUTO 0.07 K/mm3 (0.00-0.68); EOSINOPHILS PERCENT AUTO 1 % (0-6); Hematocrit 43.5 % (37.0-53.0); IMMATURE GRAN ABSOLUTE AUTO 0.04 K/mm3 (0.00-0.10); IMMATURE GRAN PERCENT AUTO 0 % (0-1); LYMPHOCYTES ABSOLUTE AUTO 0.99 K/mm3 (0.84-5.20); LYMPHOCYTES PERCENT AUTO 9 % (21-46); MONOCYTES ABSOLUTE AUTO 1.36 K/mm3 (0.16-1.47); MONOCYTES PERCENT AUTO 12 % (4-13); Mean Corpuscular HGB 30.8 pg (26.0-34.0); Mean Corpuscular HGB Conc 32.2 g/dL (31.5-36.5); Mean Corpuscular Volume 96 fL (80-100); Mean Platelet Volume 9.9 fL (9.1-12.4); NEUTROPHILS ABSOLUTE AUTO 9.17 K/mm3 (1.96-9.15); NEUTROPHILS PERCENT AUTO 79 % (41-73); Platelet Count 246 K/mm3 (150-400); RDW Coefficient Variation 14.3 % (11.7-14.2); RDW Standard Deviation 49.9 fL (35.1-46.3); Red Blood Cell Count 4.55 M/mm3 (4.30-5.90); White Blood Cell Count 11.68 K/mm3 (4.00-11.30)
[2018-08-08 18:57] LABS: Alanine Aminotransfer (ALT/SGP 37 U/L (12-78); Albumin, Blood 3.8 g/dL (3.4-5.0); Albumin/Globulin Ratio 0.8 (0.8-1.8); Alk Phos 136 U/L (50-136); Anion Gap 7 mmol/L (6-16); Aspartate Aminotrans (AST/SGOT 44 U/L (12-37); Bilirubin, Total 2.8 mg/dL (0.1-1.0); Blood Urea Nitrogen 21 mg/dL (8-24); Bun/Creatinine Ratio 16.4 (12.0-20.0); CO2, Blood 29 mmol/L (21-32); Chloride, Blood 103 mmol/L (98-108); Creatinine, Blood 1.28 mg/dL (0.60-1.20); Globulin, Blood 4.6 g/dL (2.2-4.0); Glomerular Filtration Rate >60 (60-); Glucose, Blood 109 mg/dL (70-99); Potassium, Blood 2.9 mmol/L (3.5-5.5); Sodium, Blood 139 mmol/L (136-145); Total Protein, Blood 8.4 g/dL (6.4-8.2); Troponin I 0.127 ng/mL (0.000-0.040)
[2018-08-08] MEDS ORDERED: Isosorbide Mono60 MG PO (21:05)
[2018-08-08] MEDS ORDERED: COLCRYS0.6 MG PO (21:08)
[2018-08-08] MEDS ORDERED: Lopressor 25 mg25 MG PO (21:10)
[2018-08-08] MEDS ORDERED: Zantac150 MG PO (21:10)
[2018-08-08] MEDS ORDERED: TORSE20 PO (21:11)
[2018-08-08] MEDS ORDERED: SPIR25 PO (21:11)
[2018-08-08] MEDS ORDERED: Prinivil10 MG PO (21:11)
[2018-08-08] MEDS ORDERED: NITR.4SL SL (21:12)
[2018-08-09 02:29] LABS: Source, Urine Clean Catch
[2018-08-09 02:32] LABS: Bilirubin, Urine Neg (Neg); Blood, Urine Neg (Neg); Glucose Qualitative, Urine Neg (Neg); Ketones, Urine Neg (Neg); Leukocyte Esterase, Urine Neg (Neg); Nitrite, Urine Neg (Neg); Protein, Urine 3+ (Neg); Specific Gravity, Urine 1.015 (1.003-1.022); Urobilinogen, Urine 1+ (Normal)
[2018-08-09 02:35] LABS: Appearance, Urine Clear (Clear); Color, Urine Yellow (P-Yellow)
[2018-08-09 02:40] LABS: Bacteria Few /hpf; Hyaline Casts 0-2 /lpf (0-2); Red Blood Cells, Urine 0-2 /hpf (0-2); Squamous Epithelial Cells Not Seen /hpf (Few); White Blood Cells, Urine 0-2 /hpf (0-5)
[2018-08-09 02:42] LABS: Troponin I 0.144 ng/mL (0.000-0.040)
[2018-08-09 02:42] LABS: U Amphetamine Screen Not Detected; U Barbituate Screen Not Detected; U Benzodiazapine Screen Not Detected; U Buprenorphine Screen Not Detected; U Cannabinoids Screen DETECTED; U Cocaine Screen Not Detected; U Methadone Screen Not Detected; U Methamphetamine Screen Not Detected; U Opiates Screen Not Detected; U Oxycodone Screen Not Detected; U Phencyclidine Screen Not Detected; U Propoxyphene Screen Not Detected
[2018-08-09 05:41] LABS: Adenovirus Not Detected (NOT DETECT); Bordetella pertussis Not Detected (NOT DETECT); Chlamydophila pneumoniae Not Detected (NOT DETECT); Coronavirus 229E Not Detected (NOT DETECT); Coronavirus HKU1 Not Detected (NOT DETECT); Coronavirus NL63 Not Detected (NOT DETECT); Coronavirus OC43 Not Detected (NOT DETECT); Human Metapneumovirus Not Detected (NOT DETECT); Human Rhinovirus/Enterovirus Not Detected (NOT DETECT); Influenza A Not Detected (NOT DETECT); Influenza A/2009-H1 Not Detected (NOT DETECT); Influenza A/H1 Not Detected (NOT DETECT); Influenza A/H3 Not Detected (NOT DETECT); Influenza B Not Detected (NOT DETECT); Mycoplasma pneumoniae Not Detected (NOT DETECT); Parainfluenza Virus 1 Not Detected (NOT DETECT); Parainfluenza Virus 2 Not Detected (NOT DETECT); Parainfluenza Virus 3 Not Detected (NOT DETECT); Parainfluenza Virus 4 Not Detected (NOT DETECT); Respiratory Syncytial Virus Not Detected (NOT DETECT)
--- NOTE | 2018-08-09 06:02 | NUR ---
NOC SHIFT SUMMARY PT ADMITTED LAST NIGHT FOR N/V, LOW k, AND ELEVATED TROP. HE IS PLEASANT AND COOPERATIVE WITH CARE. NO NEW S/S NOTED THIS SHIFT. VSS. PT WAS NAUSEATED SHORTLY AFTER ADMIT. TREATED WITH ZOFRAN WHICH RESOLVED THIS. PT HAS RESTED IN BED THIS NIGHT. NO OTHER COMPLAINTS BESIDES THE NAUSEA. APPEARS IN NO ACUTE DISTRESS. WILL CONTINUE TO MONITOR.
[2018-08-09 10:28] LABS: Hematocrit 40.7 % (37.0-53.0); Hemoglobin 12.8 g/dL (13.5-17.5); Mean Corpuscular HGB 30.5 pg (26.0-34.0); Mean Corpuscular HGB Conc 31.4 g/dL (31.5-36.5); Mean Corpuscular Volume 97 fL (80-100); Platelet Count 197 K/mm3 (150-400); RDW Coefficient Variation 14.3 % (11.7-14.2); RDW Standard Deviation 50.5 fL (35.1-46.3); White Blood Cell Count 9.24 K/mm3 (4.00-11.30)
[2018-08-09 10:57] LABS: Albumin, Blood 3.1 g/dL (3.4-5.0); Albumin/Globulin Ratio 0.7 (0.8-1.8); Bun/Creatinine Ratio 15.9 (12.0-20.0); Calcium, Blood 8.5 mg/dL (8.5-10.1); Creatinine, Blood 1.38 mg/dL (0.60-1.20); Globulin, Blood 4.3 g/dL (2.2-4.0); Potassium, Blood 3.2 mmol/L (3.5-5.5); Total Protein, Blood 7.4 g/dL (6.4-8.2)
[2018-08-09 10:59] LABS: Troponin I 0.13 ng/mL (0.000-0.040)
[2018-08-09 16:39] LABS: Hemoglobin 12.3 g/dL (13.5-17.5)
--- NOTE | 2018-08-09 19:54 | NUR ---
SUMMARY PT IS A/O X4, PLEASANT/COOPERATIVE AFFECT. THIS AM HE STATE NO NAUSEA, STATE SOME ABD DISCOMFORT, BLOATING & BELCHING. HE TOLERATED BOTH BF & LUNCH. DR WRIGHT HAD CONSIDERED LETTING HIM GO HOME HOWEVER AFTER REVIEW OF SYMPTOMS & LABS WITH PT SHE ORDER CT ABD & CL DIET. PLACE ON PROTONIX GTT @ 10 ML/HR. K+ CONTINUES LOW, SUPPLEMENT GIVEN TODAY. HX AFIB, MULT NV. HR IRREG 70-80/TELE. TROP 0.13, TRENDING DOWN. PT STATE NO BM TODAY, DR ORDER BOWEL MEDS.
[2018-08-09] MEDS ORDERED: POTCHL10ER PO (23:04)
[2018-08-09] MEDS ORDERED: FURO40 PO (23:05)
[2018-08-09] MEDS ORDERED: K-Tab10 MEQ PO (23:10)
[2018-08-10 04:42] LABS: BASOPHILS ABSOLUTE AUTO 0.07 K/mm3 (0.00-0.23); BASOPHILS PERCENT AUTO 1 % (0-2); EOSINOPHILS PERCENT AUTO 2 % (0-6); Hematocrit 39.3 % (37.0-53.0); Hemoglobin 12.3 g/dL (13.5-17.5); IMMATURE GRAN ABSOLUTE AUTO 0.03 K/mm3 (0.00-0.10); IMMATURE GRAN PERCENT AUTO 0 % (0-1); LYMPHOCYTES ABSOLUTE AUTO 1.35 K/mm3 (0.84-5.20); LYMPHOCYTES PERCENT AUTO 13 % (21-46); MONOCYTES PERCENT AUTO 15 % (4-13); Mean Corpuscular HGB 30.8 pg (26.0-34.0); Mean Corpuscular HGB Conc 31.3 g/dL (31.5-36.5); Mean Corpuscular Volume 98 fL (80-100); Mean Platelet Volume 10.1 fL (9.1-12.4); NEUTROPHILS ABSOLUTE AUTO 7.26 K/mm3 (1.96-9.15); NEUTROPHILS PERCENT AUTO 69 % (41-73); Platelet Count 201 K/mm3 (150-400); RDW Coefficient Variation 14.1 % (11.7-14.2); White Blood Cell Count 10.51 K/mm3 (4.00-11.30)
[2018-08-10 05:10] LABS: Albumin, Blood 3.3 g/dL (3.4-5.0); Anion Gap 9 mmol/L (6-16); Blood Urea Nitrogen 24 mg/dL (8-24); Bun/Creatinine Ratio 15.1 (12.0-20.0); CO2, Blood 26 mmol/L (21-32); Calcium, Blood 8.7 mg/dL (8.5-10.1); Chloride, Blood 103 mmol/L (98-108); Creatinine, Blood 1.59 mg/dL (0.60-1.20); Glomerular Filtration Rate 47 (60-); Glucose, Blood 106 mg/dL (70-99); Phosphorus, Blood 2.7 mg/dL (2.5-4.9); Potassium, Blood 3.4 mmol/L (3.5-5.5); Sodium, Blood 138 mmol/L (136-145)
--- NOTE | 2018-08-10 05:54 | NUR ---
SHIFT SUMMARY PT AWAKE ON/OFF T/O NIGHT. AOX4. VSS. PER TELE TIME MOTION ANALYST PT IS AFIB W/HR 69. DENIES SOB. PT REPORTED NAUSEA @ BEGINNING OF SHIFT & WAS MEDICATED 1X W/ZOFRAN PER ORDERS. NO FURTHER REPORTS OF NAUSEA. ABD IS TENDER TO PALPATION IN RLQ & REPORTS HE FEELS LESS BLOATED THAN USUAL. PROTONIX DRIP HAS BEEN RUNNING ALL NIGHT PER ORDERS. PT IS ON CLEAR LIQUIDS & HAS BEEN TOLERATING WELL. AROUND 0130 PT REPORTED 8/10 R. SHOULDER PAIN & STATED HE THOUGHT IT WAS DUE TO ARTHRITIS, MEDICATED W/TYLENOL PER ORDERS. THIS AM PT REPORTED HIS SHOULDER WAS STILL BOTHERING HIM, KPAD PLACED, REASSESSED PT & HE REPORTED THE HEAT HELPED. CALL LIGHT IN REACH.
--- NOTE | 2018-08-10 10:43 | NUR ---
PT REPORTS AT BEGINNING OF SHIFT NOT SLEEPING WELL THROUGH NIGHT. HAS FALLEN ASLEEP AND IS CURRENTLY BREATHING EVEN AND UNLABORED. WILL ASSESS AND MEDICATE WHEN HE AWAKENS.
[2018-08-10 17:01] LABS: Source, Urine Clean Catch
[2018-08-10 17:12] LABS: Appearance, Urine Hazy (Clear); Bilirubin, Urine Neg (Neg); Blood, Urine Neg (Neg); Color, Urine Yellow (P-Yellow); Glucose Qualitative, Urine Neg (Neg); Ketones, Urine Neg (Neg); Leukocyte Esterase, Urine Neg (Neg); Nitrite, Urine Neg (Neg); Protein, Urine 2+ (Neg); Specific Gravity, Urine 1.015 (1.003-1.022); Urobilinogen, Urine NORM (Normal)
[2018-08-10 17:39] LABS: Squamous Epithelial Cells Rare /hpf (Few)
[2018-08-10 17:40] LABS: Bacteria Rare /hpf; Hyaline Casts Rare /lpf (0-2); Red Blood Cells, Urine Not Seen /hpf (0-2); White Blood Cells, Urine Not Seen /hpf (0-5)
--- NOTE | 2018-08-10 19:16 | NUR ---
SHIFT SUMMARY PT SLEPT ALL MORNING AFTER NOT SLEEPING ALL NIGHT. MEDS AND ASSESSMENT LATE DUE TO ALLOWING HIM TO SLEEP. INDEPENDENT IN ROOM. REPORTED PAIN TO LLQ AND FLANK TODAY MORE THAN YESTERDAY. TYLENOL GIVEN WITH HELP. PROTONIX DRIP D/CD. FACE GETS DARK RED TO ALMOST PURPLE WHEN LAYING ON HIS SIDE AND BED FLAT WHEN SLEEPING. MD NOTIFIED.
[2018-08-11 04:57] LABS: BASOPHILS ABSOLUTE AUTO 0.05 K/mm3 (0.00-0.23); BASOPHILS PERCENT AUTO 1 % (0-2); EOSINOPHILS ABSOLUTE AUTO 0.24 K/mm3 (0.00-0.68); EOSINOPHILS PERCENT AUTO 2 % (0-6); Hemoglobin 12.3 g/dL (13.5-17.5); IMMATURE GRAN ABSOLUTE AUTO 0.04 K/mm3 (0.00-0.10); IMMATURE GRAN PERCENT AUTO 0 % (0-1); LYMPHOCYTES ABSOLUTE AUTO 1.54 K/mm3 (0.84-5.20); LYMPHOCYTES PERCENT AUTO 15 % (21-46); MONOCYTES ABSOLUTE AUTO 1.55 K/mm3 (0.16-1.47); MONOCYTES PERCENT AUTO 15 % (4-13); Mean Corpuscular HGB 30.6 pg (26.0-34.0); Mean Corpuscular HGB Conc 31.5 g/dL (31.5-36.5); Mean Corpuscular Volume 97 fL (80-100); Mean Platelet Volume 10.4 fL (9.1-12.4); NEUTROPHILS ABSOLUTE AUTO 6.83 K/mm3 (1.96-9.15); NEUTROPHILS PERCENT AUTO 67 % (41-73); Platelet Count 202 K/mm3 (150-400); RDW Coefficient Variation 14.1 % (11.7-14.2); RDW Standard Deviation 49.7 fL (35.1-46.3); Red Blood Cell Count 4.02 M/mm3 (4.30-5.90); White Blood Cell Count 10.25 K/mm3 (4.00-11.30)
[2018-08-11 05:17] LABS: Albumin, Blood 3.3 g/dL (3.4-5.0); Anion Gap 7 mmol/L (6-16); Blood Urea Nitrogen 30 mg/dL (8-24); Bun/Creatinine Ratio 15.4 (12.0-20.0); CO2, Blood 27 mmol/L (21-32); Calcium, Blood 8.6 mg/dL (8.5-10.1); Chloride, Blood 104 mmol/L (98-108); Creatinine, Blood 1.95 mg/dL (0.60-1.20); Glomerular Filtration Rate 37 (60-); Glucose, Blood 99 mg/dL (70-99); Phosphorus, Blood 2.5 mg/dL (2.5-4.9); Potassium, Blood 3.9 mmol/L (3.5-5.5); Sodium, Blood 138 mmol/L (136-145)
--- NOTE | 2018-08-11 06:34 | NUR ---
SHIFT SUMMARY PT BARELY SLEPT AT ALL T/O NIGHT. AOX4. VSS. REPORTS 5/10 PAIN IN R. SHOULDER, MEDICATED W/TYLENOL PER ORDERS. PT REPORTS RLQ OF ABD IS TENDER TO PALPATION & ABD FEELS MORE BLOATED/FIRM THAN USUAL WHICH CAUSES HIM TO FEEL SOB & NAUSEOUS. PT MEDICATED W/ZOFRAN & SIMETHICONE PER ORDERS. STATES BELCHING & THE SIMETHICONE HAVE HELPED RELIEVE SOME OF THE DISCOMFORT IN ABD. CALL LIGHT IS IN REACH & I WILL CONT. TO MONITOR PT.
--- NOTE | 2018-08-11 14:02 | NUR ---
Advance Directive Education/Spiritual care visit conducted. Patient was lying in bed and alert when I entered patient's room. I talked with patient about the importance and process of the advance directive. I sat down with the patient and filled out the forms and patient decided to wait to finish until his step son returns. Patient will get all the needed signatures and hand in the forms to his nurse before completing the discharge process. I also talked with patient about his spiritual/emotional health which led to a lengthy conversation about patient's rough childhood, poor decision making skills, family unit complications and the effects of his medical issues on his amy. I listened empathically, provided pastoral drug and alcohol counsellor, spiritual guidance and prayer. Patient responded well and displayed evidence of restored amy. Patient expressed gratitude for the visit.
[2018-08-11] MEDS ORDERED: PANT40 PO (15:28)
[2018-08-11] MEDS ORDERED: SPIR25 PO (15:30)
[2018-08-11] MEDS ORDERED: CEPH500 PO (15:30)
--- NOTE | 2018-08-11 17:00 | NUR ---
PT. DISCHARGED HOME, DISCHARGE INSTRUCTIONS GIVEN AND IV DC'D. PT. TOOK SHOWER THEN LEFT.
== END 2018-08-11 17:30 | disposition home or self-care (01) | DRG 378 ==
LOC: ER 17:47 → MEDS 17:48 → ER 22:30 → MEDS 22:34
PROVIDERS: Family Medicine; Physician Assistant; ADMIT Internal Medicine
DX: K92.0 Hematemesis (principal); I50.42 Chronic combined systolic (congestive) and diastolic (congestive) heart failure; I42.0 Dilated cardiomyopathy; N12 Tubulo-interstitial nephritis, not specified as acute or chronic; I25.2 Old myocardial infarction; Z95.1 Presence of aortocoronary bypass graft; I48.91 Unspecified atrial fibrillation; Z79.02 Long term (current) use of antithrombotics/antiplatelets; I25.10 Atherosclerotic heart disease of native coronary artery without angina pectoris; E87.6 Hypokalemia; N18.3 Chronic kidney disease, stage 3 (moderate); M10.9 Gout, unspecified; E66.01 Morbid (severe) obesity due to excess calories; Z68.32 Body mass index [BMI] 32.0-32.9, adult; M54.9 Dorsalgia, unspecified; D63.1 Anemia in chronic kidney disease
CPT/HCPCS: 36415; 71046; 74019; 74177; 80053; 80069; 81001; 82550; 83690; 83735; 83880; 84145; 84484; 85014; 85018; 85025; 85027; 87086; 87486; 87581; 87633; 87798; 93005; 93010; 94660; 94762; 96361; 96365; 96366; 96367; 96372; 96375; 96376; 99285-25; C9113; G0378; J0696; J1650; J1956; J2405; J3480; J7030; Q9967

== ENCOUNTER 2018-09-06 19:04 | Emergency (ER) | payer OTHER ==
[~2018-09-06] VITALS: Ht 185.4 cm; Wt 110.7 kg
[~2018-09-06 19:04] MED LIST changes: +Isosorbide Mono60 MG PO; +K-Tab10 MEQ PO; +Lopressor 25 mg25 MG PO; +PANT40 PO; +POTCHL10ER PO; +Prinivil10 MG PO; +Zantac150 MG PO
[2018-09-06 19:29] LABS: BASOPHILS ABSOLUTE AUTO 0.09 K/mm3 (0.00-0.23); BASOPHILS PERCENT AUTO 1 % (0-2); EOSINOPHILS ABSOLUTE AUTO 0.25 K/mm3 (0.00-0.68); EOSINOPHILS PERCENT AUTO 3 % (0-6); Hematocrit 42.4 % (37.0-53.0); Hemoglobin 13.4 g/dL (13.5-17.5); IMMATURE GRAN ABSOLUTE AUTO 0.01 K/mm3 (0.00-0.10); IMMATURE GRAN PERCENT AUTO 0 % (0-1); LYMPHOCYTES ABSOLUTE AUTO 1.56 K/mm3 (0.84-5.20); LYMPHOCYTES PERCENT AUTO 19 % (21-46); MONOCYTES ABSOLUTE AUTO 1.18 K/mm3 (0.16-1.47); MONOCYTES PERCENT AUTO 14 % (4-13); Mean Corpuscular HGB 29.9 pg (26.0-34.0); Mean Corpuscular HGB Conc 31.6 g/dL (31.5-36.5); Mean Corpuscular Volume 95 fL (80-100); Mean Platelet Volume 10.2 fL (9.1-12.4); NEUTROPHILS ABSOLUTE AUTO 5.09 K/mm3 (1.96-9.15); NEUTROPHILS PERCENT AUTO 62 % (41-73); Platelet Count 240 K/mm3 (150-400); RDW Coefficient Variation 14.7 % (11.7-14.2); RDW Standard Deviation 50.3 fL (35.1-46.3); Red Blood Cell Count 4.48 M/mm3 (4.30-5.90); White Blood Cell Count 8.18 K/mm3 (4.00-11.30)
[2018-09-06 19:46] LABS: Albumin, Blood 3.6 g/dL (3.4-5.0); Albumin/Globulin Ratio 0.8 (0.8-1.8); Bilirubin, Total 1.5 mg/dL (0.1-1.0); Bun/Creatinine Ratio 13.1 (12.0-20.0); Calcium, Blood 9.3 mg/dL (8.5-10.1); Creatinine, Blood 1.68 mg/dL (0.60-1.20); Globulin, Blood 4.8 g/dL (2.2-4.0); Potassium, Blood 3.3 mmol/L (3.5-5.5); Total Protein, Blood 8.4 g/dL (6.4-8.2)
[2018-09-06] MEDS ORDERED: COLCHICINE0.6 MG PO (20:04)
[2018-09-06] MEDS ORDERED: FURO40 PO (20:04)
== END 2018-09-06 22:31 | disposition home or self-care (01) ==
LOC: ER 19:04
PROVIDERS: Physician Assistant
DX: I50.9 Heart failure, unspecified (principal); K92.1 Melena; I48.91 Unspecified atrial fibrillation
CPT/HCPCS: 36415; 80053; 82272; 83880; 84484; 85025; 86850; 86900; 86901; 93005; 93010; 96374; 99285-25; J1940

== ENCOUNTER 2018-09-17 07:36 | Inpatient (IN) | payer OTHER ==
[~2018-09-17] VITALS: Ht 182.9 cm; Wt 110.4 kg
[~2018-09-17 07:36] MED LIST changes: +COLCHICINE0.6 MG PO; +ISOSORBIDE MONONITRA PO; -Isosorbide Mono60 MG PO
[2018-09-17 08:15] LABS: BASOPHILS ABSOLUTE AUTO 0.11 K/mm3 (0.00-0.23); BASOPHILS PERCENT AUTO 1 % (0-2); EOSINOPHILS ABSOLUTE AUTO 0.14 K/mm3 (0.00-0.68); EOSINOPHILS PERCENT AUTO 2 % (0-6); Hematocrit 46.8 % (37.0-53.0); Hemoglobin 14.4 g/dL (13.5-17.5); IMMATURE GRAN ABSOLUTE AUTO 0.03 K/mm3 (0.00-0.10); IMMATURE GRAN PERCENT AUTO 0 % (0-1); LYMPHOCYTES ABSOLUTE AUTO 1.25 K/mm3 (0.84-5.20); LYMPHOCYTES PERCENT AUTO 13 % (21-46); MONOCYTES PERCENT AUTO 15 % (4-13); Mean Corpuscular HGB 28.5 pg (26.0-34.0); Mean Corpuscular HGB Conc 30.8 g/dL (31.5-36.5); Mean Corpuscular Volume 93 fL (80-100); Mean Platelet Volume 9.8 fL (9.1-12.4); NEUTROPHILS PERCENT AUTO 69 % (41-73); Platelet Count 254 K/mm3 (150-400); RDW Standard Deviation 50.9 fL (35.1-46.3); Red Blood Cell Count 5.06 M/mm3 (4.30-5.90); White Blood Cell Count 9.33 K/mm3 (4.00-11.30)
[2018-09-17 08:32] LABS: Albumin, Blood 3.8 g/dL (3.4-5.0); Albumin/Globulin Ratio 0.8 (0.8-1.8); Bilirubin, Total 1.7 mg/dL (0.1-1.0); Bun/Creatinine Ratio 17.9 (12.0-20.0); Calcium, Blood 10.1 mg/dL (8.5-10.1); Creatinine, Blood 1.95 mg/dL (0.60-1.20); Globulin, Blood 4.7 g/dL (2.2-4.0); Potassium, Blood 3.8 mmol/L (3.5-5.5); Total Protein, Blood 8.5 g/dL (6.4-8.2); Troponin I 0.194 ng/mL (0.000-0.040)
[2018-09-17 09:47] LABS: Source, Urine Clean Catch
[2018-09-17 09:52] LABS: Appearance, Urine Clear (Clear); Bilirubin, Urine Neg (Neg); Blood, Urine Neg (Neg); Color, Urine Yellow (P-Yellow); Glucose Qualitative, Urine Neg (Neg); Ketones, Urine Neg (Neg); Leukocyte Esterase, Urine Neg (Neg); Nitrite, Urine Neg (Neg); Protein, Urine 4+ (Neg); Urobilinogen, Urine NORM (Normal)
[2018-09-17 10:05] LABS: U Amphetamine Screen Not Detected; U Barbituate Screen Not Detected; U Benzodiazapine Screen Not Detected; U Buprenorphine Screen Not Detected; U Cannabinoids Screen DETECTED; U Cocaine Screen Not Detected; U Methadone Screen Not Detected; U Methamphetamine Screen Not Detected; U Opiates Screen Not Detected; U Oxycodone Screen Not Detected; U Phencyclidine Screen Not Detected; U Propoxyphene Screen Not Detected
[2018-09-17 10:09] LABS: Red Blood Cells, Urine Not Seen /hpf (0-2); White Blood Cells, Urine 0-2 /hpf (0-5)
[2018-09-17 10:10] LABS: Amorphous Light ({null, 0-Heavy}); Bacteria Not Seen /hpf; Hyaline Casts TNTC /lpf (0-2); Squamous Epithelial Cells Few /hpf (Few)
[2018-09-17] MEDS ORDERED: CLOP75 PO (15:04)
--- NOTE | 2018-09-17 15:43 | NUR ---
Assumed Care: Assumed care of pt at approx 1415. VSS. In no apparent sign of distress. Pt denies any CP or pressure at this time, but c/o recent chest pressure w/activity. See shift assessment for detailed assessment. Dr. Smith in to see pt, and does not believe that the pt is having an acute ND or cardiac event, but rather that his elevated trop is r/t his CHF exacerbation. Pt is a SBA. Calls appropriatey. Plan is to diurese for now and consult Dr. Yañez. Pt currently resting in bed with call light within reach. Denies any further quesitons, complaints or requests at this time. Will continue to monitor.
--- NOTE | 2018-09-17 16:36 | NUR ---
Summary: No acute changes since arrival to floor. Pt continues to deny CP/Pressure even w/ambulation to bathroom. Consult called to Dr. Yañez and orders placed per his request. Pt currently resting in bed with call light within reach. Will continue to montior until report is given to severino MELVIN.
[2018-09-18 04:48] LABS: BASOPHILS ABSOLUTE AUTO 0.09 K/mm3 (0.00-0.23); BASOPHILS PERCENT AUTO 1 % (0-2); EOSINOPHILS ABSOLUTE AUTO 0.11 K/mm3 (0.00-0.68); EOSINOPHILS PERCENT AUTO 2 % (0-6); Hematocrit 38.8 % (37.0-53.0); Hemoglobin 12.3 g/dL (13.5-17.5); IMMATURE GRAN ABSOLUTE AUTO 0.02 K/mm3 (0.00-0.10); IMMATURE GRAN PERCENT AUTO 0 % (0-1); LYMPHOCYTES ABSOLUTE AUTO 1.44 K/mm3 (0.84-5.20); LYMPHOCYTES PERCENT AUTO 20 % (21-46); MONOCYTES ABSOLUTE AUTO 1.08 K/mm3 (0.16-1.47); MONOCYTES PERCENT AUTO 15 % (4-13); Mean Corpuscular HGB 28.8 pg (26.0-34.0); Mean Corpuscular HGB Conc 31.7 g/dL (31.5-36.5); Mean Corpuscular Volume 91 fL (80-100); Mean Platelet Volume 10.2 fL (9.1-12.4); NEUTROPHILS ABSOLUTE AUTO 4.64 K/mm3 (1.96-9.15); NEUTROPHILS PERCENT AUTO 63 % (41-73); Platelet Count 242 K/mm3 (150-400); RDW Standard Deviation 49.5 fL (35.1-46.3); Red Blood Cell Count 4.27 M/mm3 (4.30-5.90); White Blood Cell Count 7.38 K/mm3 (4.00-11.30)
[2018-09-18 05:11] LABS: Albumin, Blood 3.2 g/dL (3.4-5.0); Anion Gap 7 mmol/L (6-16); Blood Urea Nitrogen 42 mg/dL (8-24); CO2, Blood 26 mmol/L (21-32); Calcium, Blood 8.7 mg/dL (8.5-10.1); Chloride, Blood 105 mmol/L (98-108); Glomerular Filtration Rate 34 (60-); Glucose, Blood 97 mg/dL (70-99); Phosphorus, Blood 3.6 mg/dL (2.5-4.9); Sodium, Blood 138 mmol/L (136-145)
--- NOTE | 2018-09-18 06:03 | NUR ---
SHIFT SUMMARY- PT HAS REMAINED AOX4 THROUGHOUT SHIFT. VSS. PLEASANT AND COOPERATIVE WITH CARE. PT CONTINUES TO USE URINAL STANDING AT BEDSIDE AND IS STEADY ON HIS FEET. HAS DENIED CHEST PAIN, DYSPNEA AND NAUSEA THROUGHOUT REMAINDER OF SHIFT. PT REQUIRES FREQUENT EDUCATION ON FLUID RESTRICTION AND ITS PURPOSE. PT HAS RESTED WELL THROUGHOUT THE NIGHT. NO OTHER CHANGES FROM INITIAL ASSESSMENT. WILL CONTINUE TO MONITOR AND REPORT TO ONCOMING SHIFT RN. BED IN LOW POSITION, CALL LIGHT IN REACH.
--- NOTE | 2018-09-18 13:34 | NUR ---
Spiritual care visit conducted. Patient remembers this marketing copywriter from his previous hospitalization. Patient shared about his current medical issues, his life and family issues and his emotional status. I listened empathically, provided pastoral drug counselor, encouraged self care, provided companionship and provided prayer. Patient responded well and displayed evidence of restored amy. Patient thanked me for the visit.
--- NOTE | 2018-09-18 14:24 | NUR ---
Consent Pt gave consent for Haven Manley to assist with care 09/19/18.
--- NOTE | 2018-09-18 15:53 | NUR ---
pt back from imaging.
--- NOTE | 2018-09-18 18:51 | NUR ---
SUMMARY PT HAVING DIFFICULTY UNDERSTANDING NEED FOR COMPLIANCE W/FLUID RESTRICTION. CONTINUALLY ASKS FOR ORANGE JUICE AND FLUIDS; REEDUCATED T/O SHIFT. PT DENIES SOB AT REST BUT REPORTS DYSPNEA W/EXERTION. AMBULATED W/PATIENT LOGISTICS ANALYTICS MANAGER IN HALLWAY. GETS UP INDEPENDENTLY IN ROOM. REPORTED VOIDED IN TOILET 3-4 TIMES. REEDUCATED PT ON IMPORTANCE OF USING URINAL TO MONITOR I&OS. PT ABD DISTENDED AND FIRM. TRACE EDEMA NOTED TO BLE. ADMINISTERED MEDS PER ORDERS. CALL LIGHT IN REACH. TELE SHOWS AFIB.
[2018-09-19 03:59] LABS: Hematocrit 37.2 % (37.0-53.0); Hemoglobin 11.9 g/dL (13.5-17.5)
[2018-09-19 04:18] LABS: Albumin, Blood 3.2 g/dL (3.4-5.0); Anion Gap 7 mmol/L (6-16); Blood Urea Nitrogen 45 mg/dL (8-24); Bun/Creatinine Ratio 19.9 (12.0-20.0); CO2, Blood 28 mmol/L (21-32); Calcium, Blood 8.5 mg/dL (8.5-10.1); Chloride, Blood 105 mmol/L (98-108); Creatinine, Blood 2.26 mg/dL (0.60-1.20); Glomerular Filtration Rate 31 (60-); Glucose, Blood 98 mg/dL (70-99); Magnesium, Blood 2.2 mg/dL (1.6-2.4); Phosphorus, Blood 3.4 mg/dL (2.5-4.9); Sodium, Blood 140 mmol/L (136-145)
--- NOTE | 2018-09-19 05:50 | NUR ---
SHIFT SUMMARY- PT HAS REMAINED AOX4 THROUGHOUT SHIFT. VSS. MOSTLY COOPERATIVE WITH CARE. PT CONTINUES TO REQUIRE FREQUENT EDUCATION ON FLUID RESTRICTION AND WHY IT IS NECESSARY. PT CONTINUES TO ASK FOR MULTIPLE CUPS OF ORANGE JUICE AND ICE STATING THAT "SOMEONE TOOK MINE". PT CONTINUES TO USE URINAL AT BEDSIDE INDEPENDENTLY AND WITHOUT DIFFICULTY AND AMBULATES AROUND ROOM TOLERATED. PT HAS DENIED CHEST PAIN OR DYSPNEA ON EXERTION, HOWEVER STATES THAT HE DOES FEEL SHORT OF BREATH WHEN HE LIES FLAT ON HIS BACK. O2 SATS HAVE REMAINED >90% ON RA. NO OTHER CHANGES FROM INITIAL ASSESSMENT. WILL CONTINUE TO MONITOR AND REPORT TO ONCOMING SHIFT RN. BED IN LOW POSITION, CALL LIGHT IN REACH.
--- NOTE | 2018-09-19 07:01 | NUR ---
REPORT REC'D FROM TANMAY MELVIN. PT RESTING IN BED, APPEARS TO BE SLEEPING. NO S/S OF DISTRESS.
--- NOTE | 2018-09-19 12:39 | NUR ---
REPORT RECEIVED FROM NGOZI LARRY. NO ACUTE CHANGES NOTED. NO CURRENT COMPLAINTS OF PAIN OR DISCOMFORT NOTED. WILL CONTINUE TO MONITOR FOR CHANGES.
--- NOTE | 2018-09-19 13:58 | NUR ---
GLORIA RN TO ASSUME CARE, REPORT GIVEN. PT CURRENTLY NPO AWAITING AN ABDOMINAL ULTRASOUND AT APPROX 1400. PT STILL FREQ REQUESTING FLUIDS AND NEEDING REMINDERS OF FLUID RESTRICTION
--- NOTE | 2018-09-19 15:27 | NUR ---
Pt gave s nurse verbal consent to review charts and treat on 09/20/2018
--- NOTE | 2018-09-19 18:50 | NUR ---
NO ACUTE CHANGES NOTED. NO CURRENT COMPLAINTS OF PAIN OR DISCOMFORT NOTED. PATIENT IS ALERT ORIENTED AND INDEPENDENT IN THE ROOM. WILL CONTINUE TO MONITOR FOR CHANGES.
--- NOTE | 2018-09-19 20:13 | NUR ---
ASSUMED CARE (PCU NOC SHIFT) - MEDICAL NO TELE STATUS PATIENT PATIENT ALERT AND ORIENTED X4. PATIENT CONTINUES TO ASK FOR FLUIDS - PATIENT EDUCATED EXTENSIVELTY ON CHF/DYSPNEA/ORTHOPNEA/FLUID OVERLOAD - PATIENT CONTINUES TO REQUEST FLUIDS NON-COMPLIANTLY - CONTINUED TO REINFORCE EDUCATION. PATIENT VERBALIZES ETOH HISTORY, STATES HE IS FEELING MUCH BETTER TODAY BUT STILL NOT GREAT. DENIES ANY PAIN. VS ON ROOM AIR. PATIENT SAT UP IN BED TO PROVIDE SELF WITH ORAL CARE UPON ENCOURAGEMENT (PATIENT DOES HAVE 2 TEETH - DENTURES AT HOME PER PATIENT). NO ACUTE DISTRESS NOTED. PATIENT IS NO TELE STATUS. WILL CONTINUE TO MONITOR. CALL LIGHT W/I REACH.
--- NOTE | 2018-09-19 21:58 | NUR ---
REPORTED OFF TO TANMAY MELVIN. PATIENT UP IN ROOM AND DENIES ANY NEEDS AT THIS TIME.
[2018-09-20 05:18] LABS: Hematocrit 39.8 % (37.0-53.0); Hemoglobin 12.3 g/dL (13.5-17.5)
[2018-09-20 05:38] LABS: Albumin, Blood 3.2 g/dL (3.4-5.0); Anion Gap 7 mmol/L (6-16); Blood Urea Nitrogen 44 mg/dL (8-24); Bun/Creatinine Ratio 22.2 (12.0-20.0); CO2, Blood 30 mmol/L (21-32); Calcium, Blood 8.6 mg/dL (8.5-10.1); Chloride, Blood 105 mmol/L (98-108); Creatinine, Blood 1.98 mg/dL (0.60-1.20); Glomerular Filtration Rate 37 (60-); Glucose, Blood 99 mg/dL (70-99); Magnesium, Blood 2.2 mg/dL (1.6-2.4); Phosphorus, Blood 3.5 mg/dL (2.5-4.9); Potassium, Blood 3.7 mmol/L (3.5-5.5); Sodium, Blood 142 mmol/L (136-145)
--- NOTE | 2018-09-20 06:00 | NUR ---
SHIFT SUMMARY- PT HAS REMAINED AOX4 THROUGHOUT SHIFT. VSS. PT CONTINUES TO ASK FOR PO FLUIDS WHEN ROUNDED ON. PT EXTENSIVELY EDUCATED ON CHF AND NEED FOR FLUID RESTRICTION. PT ALSO ENCOURAGED TO CONTINUE TO MONITOR PO INTAKE UPON DISCHARGE TO PREVENT POTENTIAL FLUID OVERLOAD- PT VERBALIZES UNDERSTANDING UPON EDUCATION, BUT WILL ASK FOR FLUIDS OR ICE CHIPS UPON RE-ENTRY TO ROOM. PT HAS DENIED DYSPNEA OR CHEST PAIN SINCE CARE ASSUMED AT APPROXIMATELY 2130 LAST NOC. O2 SATS HAVE REMAINED >90% ON RA. NO OTHER CHANGES NOTED FROM SHIFT ASSESSMENT. WILL CONTINUE TO MONITOR AND REPORT TO ONCOMING SHIFT RN. BED IN LOW POSITION CALL LIGHT IN REACH.
[2018-09-20] MEDS ORDERED: ELIQUIS5 MG PO (09:29)
[2018-09-20] MEDS ORDERED: ATOR80 PO (09:31)
[2018-09-20] MEDS ORDERED: HYDR10 PO (09:32)
[2018-09-20] MEDS ORDERED: PANT40 PO (09:33)
[2018-09-20] MEDS ORDERED: Lisinopril2.5 MG PO (09:34)
[2018-09-20] MEDS ORDERED: SPIR25 PO (09:35)
--- NOTE | 2018-09-20 11:03 | NUR ---
NURSING PCU DISCHARGE SUMMARY: Assumed care of pt at approx 0700. Respiratory and cardiac status stable. Pt denied any pain or discomfort, mild dyspnea w/exertion. Seen by PMD, discharge home d/o received. Pt verbalized understanding of all written and verbal discharge instructions. PIV dc'd w/cath intact, rx's called to [facility] per pt request. No s/s of acute distress at time of discharge. Shower completed prior to leaving. Escorted from unit via w/c accompanied by SN, denied any questions/needs at that time.
== END 2018-09-20 10:27 | disposition home or self-care (01) | DRG 280 ==
LOC: ER 07:36 → PCU 12:20 → ER 14:09 → PCU 14:25
PROVIDERS: Emergency Medicine; Internal Medicine Nephrology; ADMIT Internal Medicine
DX: I13.0 Hypertensive heart and chronic kidney disease with heart failure and stage 1 through stage 4 chronic kidney disease, or unspecified chronic kidney disease (principal); I50.43 Acute on chronic combined systolic (congestive) and diastolic (congestive) heart failure; I21.A1 Myocardial infarction type 2; J96.01 Acute respiratory failure with hypoxia; N25.81 Secondary hyperparathyroidism of renal origin; Q21.1 Atrial septal defect; N18.3 Chronic kidney disease, stage 3 (moderate); F32.9 Major depressive disorder, single episode, unspecified; B18.2 Chronic viral hepatitis C; E66.01 Morbid (severe) obesity due to excess calories; M10.9 Gout, unspecified; I25.10 Atherosclerotic heart disease of native coronary artery without angina pectoris; I25.2 Old myocardial infarction; I48.2 Chronic atrial fibrillation; I25.5 Ischemic cardiomyopathy; D64.9 Anemia, unspecified; E88.09 Other disorders of plasma-protein metabolism, not elsewhere classified; F15.11 Other stimulant abuse, in remission; G47.33 Obstructive sleep apnea (adult) (pediatric); E78.00 Pure hypercholesterolemia, unspecified; R10.13 Epigastric pain; G31.84 Mild cognitive impairment of uncertain or unknown etiology; I77.810 Thoracic aortic ectasia; R80.9 Proteinuria, unspecified; N28.9 Disorder of kidney and ureter, unspecified; Z68.33 Body mass index [BMI] 33.0-33.9, adult; Z88.5 Allergy status to narcotic agent; Z87.891 Personal history of nicotine dependence; Z79.01 Long term (current) use of anticoagulants; Z79.899 Other long term (current) drug therapy; Z95.1 Presence of aortocoronary bypass graft
CPT/HCPCS: 36415; 71046; 71250; 74018; 76705; 76770; 80048; 80053; 80069; 81001; 83735; 83880; 84484; 85014; 85018; 85025; 93005; 93010; 93306; 96374; 96375; 99285-25; J1940; J2405

== ENCOUNTER 2019-01-02 16:26 | Emergency (ER) | payer OTHER ==
[~2019-01-02] VITALS: Ht 182.9 cm; Wt 99.8 kg
[~2019-01-02 16:26] MED LIST changes: -BUME2 PO; +ELIQUIS5 MG PO; +HYDR10 PO; +Lisinopril2.5 MG PO
[2019-01-02] MEDS ORDERED: Calcitriol0.25 MCG PO (16:38)
[2019-01-02] MEDS ORDERED: FURO40 PO (16:41)
[2019-01-02] MEDS ORDERED: POTA10T PO (16:42)
[2019-01-02] MEDS ORDERED: CALC.25 (16:43)
[2019-01-02 17:15] LABS: Alanine Aminotransfer (ALT/SGP 23 U/L (12-78); Albumin, Blood 2.8 g/dL (3.4-5.0); Albumin/Globulin Ratio 0.6 (0.8-1.8); Alk Phos 115 U/L (50-136); Anion Gap 8 mmol/L (6-16); Aspartate Aminotrans (AST/SGOT 31 U/L (12-37); Bilirubin, Total 3.4 mg/dL (0.1-1.0); Blood Urea Nitrogen 30 mg/dL (8-24); Bun/Creatinine Ratio 24.6 (12.0-20.0); CO2, Blood 28 mmol/L (21-32); Calcium, Blood 8.8 mg/dL (8.5-10.1); Chloride, Blood 100 mmol/L (98-108); Creatinine, Blood 1.22 mg/dL (0.60-1.20); Globulin, Blood 4.8 g/dL (2.2-4.0); Glomerular Filtration Rate >60 (60-); Glucose, Blood 102 mg/dL (70-99); Potassium, Blood 3.1 mmol/L (3.5-5.5); Sodium, Blood 136 mmol/L (136-145); Total Protein, Blood 7.6 g/dL (6.4-8.2); Troponin I 0.119 ng/mL (0.000-0.040); Uric Acid, Blood 9.6 mg/dL (3.5-7.2)
[2019-01-02 17:16] LABS: BASOPHILS ABSOLUTE AUTO 0.03 K/mm3 (0.00-0.23); BASOPHILS PERCENT AUTO 0 % (0-2); EOSINOPHILS ABSOLUTE AUTO 0.01 K/mm3 (0.00-0.68); EOSINOPHILS PERCENT AUTO 0 % (0-6); Hematocrit 40.2 % (37.0-53.0); Hemoglobin 13.4 g/dL (13.5-17.5); IMMATURE GRAN ABSOLUTE AUTO 0.04 K/mm3 (0.00-0.10); IMMATURE GRAN PERCENT AUTO 0 % (0-1); LYMPHOCYTES ABSOLUTE AUTO 0.68 K/mm3 (0.84-5.20); LYMPHOCYTES PERCENT AUTO 5 % (21-46); MONOCYTES ABSOLUTE AUTO 2.12 K/mm3 (0.16-1.47); MONOCYTES PERCENT AUTO 17 % (4-13); Mean Corpuscular HGB 31.5 pg (26.0-34.0); Mean Corpuscular HGB Conc 33.3 g/dL (31.5-36.5); Mean Corpuscular Volume 94 fL (80-100); Mean Platelet Volume 10.3 fL (9.1-12.4); NEUTROPHILS ABSOLUTE AUTO 9.83 K/mm3 (1.96-9.15); NEUTROPHILS PERCENT AUTO 77 % (41-73); Platelet Count 292 K/mm3 (150-400); RDW Coefficient Variation 16.1 % (11.7-14.2); RDW Standard Deviation 55.8 fL (35.1-46.3); Red Blood Cell Count 4.26 M/mm3 (4.30-5.90); White Blood Cell Count 12.71 K/mm3 (4.00-11.30)
[2019-01-02] MEDS ORDERED: COLCHICINE0.6 MG PO (19:48)
== END 2019-01-02 20:24 | disposition home or self-care (01) ==
LOC: ER 16:26
PROVIDERS: Emergency Medicine
DX: M10.9 Gout, unspecified (principal); E87.6 Hypokalemia; I25.10 Atherosclerotic heart disease of native coronary artery without angina pectoris; I48.91 Unspecified atrial fibrillation; N18.9 Chronic kidney disease, unspecified; I50.42 Chronic combined systolic (congestive) and diastolic (congestive) heart failure; Z91.012 Allergy to eggs; Z88.8 Allergy status to other drugs, medicaments and biological substances; Z79.899 Other long term (current) drug therapy
CPT/HCPCS: 80053; 84484; 84550; 85025; 93005; 93010; 96360; 99283-25; J7030

== ENCOUNTER → 2019-01-08 | Outpatient (CLI) | payer OTHER ==
[~2019-01-08] MED LIST changes: +ALLO300 PO; +Aldactone50 MG PO; +Bumetanide2 MG PO; +CALC.25; +Calcitriol0.25 MCG PO; +ELIQUIS2.5 MG PO; +Hydrochloroth12.5 MG PO; +Isosorbide Mono60 MG PO; +Lipitor80 MG PO; +METO50ER PO
[2019-01-08 17:34] LABS: BASOPHILS ABSOLUTE AUTO 0.09 K/mm3 (0.00-0.23); BASOPHILS PERCENT AUTO 1 % (0-2); EOSINOPHILS ABSOLUTE AUTO 0.08 K/mm3 (0.00-0.68); EOSINOPHILS PERCENT AUTO 1 % (0-6); Hematocrit 47.9 % (37.0-53.0); Hemoglobin 16.1 g/dL (13.5-17.5); IMMATURE GRAN ABSOLUTE AUTO 0.05 K/mm3 (0.00-0.10); IMMATURE GRAN PERCENT AUTO 1 % (0-1); LYMPHOCYTES ABSOLUTE AUTO 1.09 K/mm3 (0.84-5.20); LYMPHOCYTES PERCENT AUTO 12 % (21-46); MONOCYTES ABSOLUTE AUTO 1.26 K/mm3 (0.16-1.47); MONOCYTES PERCENT AUTO 14 % (4-13); Mean Corpuscular HGB 31.3 pg (26.0-34.0); Mean Corpuscular HGB Conc 33.6 g/dL (31.5-36.5); Mean Corpuscular Volume 93 fL (80-100); Mean Platelet Volume 10.7 fL (9.1-12.4); NEUTROPHILS ABSOLUTE AUTO 6.37 K/mm3 (1.96-9.15); NEUTROPHILS PERCENT AUTO 71 % (41-73); Platelet Count 504 K/mm3 (150-400); RDW Coefficient Variation 15.7 % (11.7-14.2); RDW Standard Deviation 53.5 fL (35.1-46.3); Red Blood Cell Count 5.14 M/mm3 (4.30-5.90); White Blood Cell Count 8.94 K/mm3 (4.00-11.30)
[2019-01-08 17:45] LABS: Albumin, Blood 3.5 g/dL (3.4-5.0); Albumin/Globulin Ratio 0.6 (0.8-1.8); Bilirubin, Total 0.7 mg/dL (0.1-1.0); Bun/Creatinine Ratio 33.6 (12.0-20.0); Calcium, Blood 10.1 mg/dL (8.5-10.1); Creatinine, Blood 1.4 mg/dL (0.60-1.20); Globulin, Blood 5.6 g/dL (2.2-4.0); Potassium, Blood 3.7 mmol/L (3.5-5.5); Total Protein, Blood 9.1 g/dL (6.4-8.2); Uric Acid, Blood 10.3 mg/dL (3.5-7.2)
== END | disposition home or self-care (01) ==
LOC: LAB 17:03 → LAB SHORT 17:03
PROVIDERS: Nurse Practitioner Family
DX: E87.6 Hypokalemia (principal); M10.9 Gout, unspecified; I50.9 Heart failure, unspecified; D63.8 Anemia in other chronic diseases classified elsewhere
CPT/HCPCS: 80053; 83880; 84550; 85025

== ENCOUNTER 2019-02-17 14:51 | Observation (INO) | payer OTHER ==
[~2019-02-17] VITALS: Ht 182.9 cm; Wt 80.8 kg
[~2019-02-17 14:51] MED LIST changes: -ALLO300 PO; -Aldactone50 MG PO; -Bumetanide2 MG PO; -ELIQUIS2.5 MG PO; -Hydrochloroth12.5 MG PO; -Isosorbide Mono60 MG PO; -Lipitor80 MG PO; -METO50ER PO
[2019-02-17 15:24] LABS: BASOPHILS ABSOLUTE AUTO 0.06 K/mm3 (0.00-0.23); BASOPHILS PERCENT AUTO 1 % (0-2); EOSINOPHILS ABSOLUTE AUTO 0.02 K/mm3 (0.00-0.68); EOSINOPHILS PERCENT AUTO 0 % (0-6); Hematocrit 49.8 % (37.0-53.0); Hemoglobin 16.2 g/dL (13.5-17.5); IMMATURE GRAN ABSOLUTE AUTO 0.07 K/mm3 (0.00-0.10); IMMATURE GRAN PERCENT AUTO 1 % (0-1); LYMPHOCYTES PERCENT AUTO 6 % (21-46); MONOCYTES PERCENT AUTO 8 % (4-13); Mean Corpuscular HGB 31.9 pg (26.0-34.0); Mean Corpuscular HGB Conc 32.5 g/dL (31.5-36.5); Mean Corpuscular Volume 98 fL (80-100); Mean Platelet Volume 10.7 fL (9.1-12.4); NEUTROPHILS PERCENT AUTO 85 % (41-73); Platelet Count 276 K/mm3 (150-400); RDW Coefficient Variation 14.9 % (11.7-14.2); RDW Standard Deviation 53.3 fL (35.1-46.3); Red Blood Cell Count 5.08 M/mm3 (4.30-5.90); White Blood Cell Count 11.95 K/mm3 (4.00-11.30)
[2019-02-17 16:19] LABS: Albumin, Blood 3.8 g/dL (3.4-5.0); Albumin/Globulin Ratio 0.7 (0.8-1.8); Bilirubin, Total 1.3 mg/dL (0.1-1.0); Creatinine, Blood 2.68 mg/dL (0.60-1.20); Globulin, Blood 5.2 g/dL (2.2-4.0); Potassium, Blood 5.2 mmol/L (3.5-5.5); Troponin I 0.036 ng/mL (0.000-0.040)
[2019-02-17 18:40] LABS: Creatine Kinase MB 1.3 ng/mL (0.0-3.6); Creatine Kinase MB Index 2.1 (0.0-4.0)
[2019-02-17] MEDS ORDERED: Aldactone50 MG PO (19:20)
[2019-02-17] MEDS ORDERED: NITR.4SL SL (19:21)
[2019-02-17] MEDS ORDERED: Lipitor80 MG PO (19:22)
[2019-02-17] MEDS ORDERED: Citalopram HBr40 MG PO (19:23)
[2019-02-17] MEDS ORDERED: ALLO300 PO (19:23)
[2019-02-17] MEDS ORDERED: METO50ER PO (19:24)
[2019-02-17] MEDS ORDERED: Hydrochloroth12.5 MG PO (19:24)
[2019-02-17] MEDS ORDERED: Bumetanide2 MG PO (19:25)
[2019-02-17] MEDS ORDERED: Isosorbide Mono60 MG PO (19:25)
[2019-02-17] MEDS ORDERED: COLCHICINE0.6 MG PO (19:26)
[2019-02-17] MEDS ORDERED: ELIQUIS2.5 MG PO (19:32)
--- NOTE | 2019-02-17 22:09 | NUR ---
HOSPITALIST WAS MADE AWARE OF AN INCREASED TROPONIN OF .049 AND THAT THE PT WAS COMPLAINING OF LETHERGY. NO NEW ORDERS AT THIS TIME. WILL CONTINUE TO MONITOR NEXT TROPONIN DRAW AT 0100.
--- NOTE | 2019-02-17 22:21 | NUR ---
PT ARRIVED IN A WHEEL CHAIR AT 2112. PT'S FACE IS JAY BUT PT DENIES SOB, CP, OR DIZZINESS. PT HAS A SLIGHT IMPAIRED GAIT AND HAS BEEN EDUCATED ON USE OF THE CALL QUIÑONEZ AND THAT SHOULD HE NEED TO GET OUT OF BED, THE PT SHOULD CALL STAFF FOR ASSISTANCE. PT VERBALIZED UNDERSTANDING. VSS AT THIS TIME.
--- NOTE | 2019-02-17 23:52 | NUR ---
PT WAS HELPED TO THE BATHROOM A STANDBY ASSIST. PT WAS INSTRUCTED ON PROPER TECHNIQUE FOR CLEAN CATCH URINE SAMPLE. PT WAS IN THE BATHROOM WHEN THIS RN RECIEVED A TELEMETRY CALL STATING THE PT'S HR WAS IN THE 140S. THIS RN CHECKED ON THE PT AND PT STATED HE WAS FEELING GOOD. DENIED SOB AND CP. PT REMAINED ON THE TOILET DESPITE RN ENCOURAGEMENT TO GET BACK TO BED. 10 MINUTES LATER THIS RN RECIEVED ANOTHER CALL FROM TELE STATING PT'S HR WAS IN THE 150S. THIS RN CHECKED ON THE PT AGAIN. PT STATED HE "DIDN'T FEEL GOOD" AND STATED HE WAS DIZZY AND HAD NAUSEA. THIS RN HELPED THE PT BACK TO BED WHERE SYMPTOMS RESOLVED. VITALS WERE TAKEN AND ORTHOSTATIC BP WAS DONE AND CHARTED. THE HOSPITALIST WAS NOTIFIED OF EVENT AND A 500ML NS BOLUS WAS ORDERED. WILL CONTINUE TO MONITOR PT.
[2019-02-18 03:10] LABS: BASOPHILS ABSOLUTE AUTO 0.03 K/mm3 (0.00-0.23); BASOPHILS PERCENT AUTO 0 % (0-2); EOSINOPHILS ABSOLUTE AUTO 0.11 K/mm3 (0.00-0.68); EOSINOPHILS PERCENT AUTO 1 % (0-6); Hematocrit 42.5 % (37.0-53.0); Hemoglobin 13.9 g/dL (13.5-17.5); IMMATURE GRAN ABSOLUTE AUTO 0.03 K/mm3 (0.00-0.10); IMMATURE GRAN PERCENT AUTO 0 % (0-1); LYMPHOCYTES PERCENT AUTO 13 % (21-46); MONOCYTES ABSOLUTE AUTO 1.72 K/mm3 (0.16-1.47); MONOCYTES PERCENT AUTO 17 % (4-13); Mean Corpuscular HGB Conc 32.7 g/dL (31.5-36.5); Mean Corpuscular Volume 98 fL (80-100); Mean Platelet Volume 10.3 fL (9.1-12.4); NEUTROPHILS ABSOLUTE AUTO 6.87 K/mm3 (1.96-9.15); NEUTROPHILS PERCENT AUTO 68 % (41-73); Platelet Count 224 K/mm3 (150-400); RDW Coefficient Variation 14.8 % (11.7-14.2); RDW Standard Deviation 53.3 fL (35.1-46.3); Red Blood Cell Count 4.34 M/mm3 (4.30-5.90); White Blood Cell Count 10.06 K/mm3 (4.00-11.30)
[2019-02-18 03:28] LABS: Albumin, Blood 3.3 g/dL (3.4-5.0); Albumin/Globulin Ratio 0.8 (0.8-1.8); Bilirubin, Total 0.8 mg/dL (0.1-1.0); Bun/Creatinine Ratio 32.9 (12.0-20.0); Calcium, Blood 8.7 mg/dL (8.5-10.1); Creatinine, Blood 2.43 mg/dL (0.60-1.20); Globulin, Blood 4.1 g/dL (2.2-4.0); Potassium, Blood 4.4 mmol/L (3.5-5.5); Total Protein, Blood 7.4 g/dL (6.4-8.2)
[2019-02-18 07:09] LABS: Source, Urine Clean Catch
[2019-02-18 07:18] LABS: Appearance, Urine Clear (Clear); Bilirubin, Urine Neg (Neg); Blood, Urine Neg (Neg); Color, Urine Yellow (P-Yellow); Glucose Qualitative, Urine Neg (Neg); Ketones, Urine Neg (Neg); Leukocyte Esterase, Urine Neg (Neg); Nitrite, Urine Neg (Neg); Protein, Urine Neg (Neg); Specific Gravity, Urine 1.015 (1.003-1.022); Urobilinogen, Urine NORM (Normal)
--- NOTE | 2019-02-18 07:37 | NUR ---
PT'S 0300 TROPONIN CAME BACK ELEVATD AGAIN. PT CONTINUES TO BE ASYMPTOMATIC. MD MADE AWARE AND A REPEAT TROPONIN WAS ORDERED FOR 10AM. WILL CONTINUE TO MONITOR.
--- NOTE | 2019-02-18 08:09 | NUR ---
IV SITE DOCUMENTATION CORRECTION: IV SITE IS IN [facility] BY EMS YESTERDAY. 20G
--- NOTE | 2019-02-18 14:02 | NUR ---
WHEN ASKED, THE PLAN[employer] SKY SHOW TECHNICIAN SAID THAT RUSS HAD 1 SHORT EPISODE OF RVR TODAY. IT WAS ABOUT 11 AM. THAT MAY HAVE BEEN WHEN HE AMBULATED WITH ASSIST TO THE BATHROOM. RATE TO 150 FOR 30 SEC THEN [address]ED IT'S WAY DOWN FROM 130 TO THE 90'S OVER THE NEXT MINUTE AND A HALF. HE DID NOT REPORT ANY DIZZINESS OR CP TO US. HE WANTS TO SHOWER TODAY. WE WILL ENCOURAGE A SHOWER CHAIR. ROUNDED. ORDERS RECEIVED.
--- NOTE | 2019-02-18 15:11 | NUR ---
A WOMAN NAMED NEREYDA CALLED TO ASK ABOUT HIM. I WAS SUPPOSE TO CALL HER BACK BUT WHEN I ASKED RUSS ABOUT HER, HE WASN'T EVEN SURE WHO SHE IS. HE SAYS IT IS PROBABLY ONE OF HIS NEIGHBORS AND NOT TO CALL HER BACK. I DIDN'T.
--- NOTE | 2019-02-18 19:18 | NUR ---
HE IS RESTING IN BED COMFORTABLY. HE HAS HAD A DAY WITHOUT SYNCOPE OR SUSTAINED TACHYCARDIA. TELE ONGOING. EATS AND DRINKS WELL. HOPES TO GO HOME TOMORROW. IVF'S CONTINUE. LABS IMPROVING.
--- NOTE | 2019-02-19 02:16 | NUR ---
PT CALLED RN INTO THE ROOM STATING "I WANT TO GO HOME". WHEN THIS RN ASKED WHY, THE PT STATED "I JUST WANT TO GO HOME". THIS RN EXPLAINED TO THE PT THAT THE PT WOULD BE RESPONSIBLE FOR MAKING HIS OWN WAY HOME. THIS RN ASKED THE PT TO WAIT A COUPLE HOURS UNTIL THE DAY DOCTORS ARRIVED. THE PT AGREED.
--- NOTE | 2019-02-19 04:34 | NUR ---
SHIFT SUMMARY PT IS ALERT, ORIENTED AND INDEPENDENT. NO EPISODES OF DIZZINESS, SOB, OF CP OCCURRED THIS SHIFT. NO CALLS ON TELEMETRY WERE RECIEVED BY THIS RN. PT HAD NO OTHER COMPLAINTS AT THIS TIME. VSS. WILL CONTINUE TO MONITOR.
[2019-02-19 06:08] LABS: Bun/Creatinine Ratio 29.2 (12.0-20.0); Calcium, Blood 8.7 mg/dL (8.5-10.1); Creatinine, Blood 1.54 mg/dL (0.60-1.20); Potassium, Blood 4.1 mmol/L (3.5-5.5)
--- NOTE | 2019-02-19 15:38 | NUR ---
THE PATIENT HAS HAD AN UNEVENTFUL DAY. COOPERATIVE AND PLEASANT WITH STAFF. DENIES PAIN AND DISCOMFORT. NO NEW CHANGES TO REPORT ON AT THIS TIME. WILL CONTINUE TO MONITOR AND PROVIDE CARE NEEDED.
--- NOTE | 2019-02-20 05:03 | NUR ---
SHIFT SUMMARY: 64 Y/O MALE, INDEPENDENT IN THE ROOM. FLAT EFFECT NOT VERY TALKATIVE THIS SHIFT. HAS SLEPT 90% OF THIS SHIFT. HE DID WAKE UP FOR A SHORT PERIOD FOR A SNACK BUT WENT BACK TO SLEEP WHEN DONE. MEDS WERE GIVEN PER EMAR. TELEMETRY REPORTS AFIB RUNNING IN THE 80S THIS SHIFT. HE DENIED ANY CONCERNS OR COMPLAINTS THIS SHIFT. WILL REPORT TO DAY SHIFT RN.
[2019-02-20 05:12] LABS: Bun/Creatinine Ratio 27.4 (12.0-20.0); Calcium, Blood 8.9 mg/dL (8.5-10.1); Creatinine, Blood 1.46 mg/dL (0.60-1.20); Potassium, Blood 4.7 mmol/L (3.5-5.5)
--- NOTE | 2019-02-20 11:36 | NUR ---
DISCHARGE INSTRUCTIONS VERBALIZED TO PATIENT; A PRINTED COPY GIVEN TO PATIENT FOR REFERENCE. ALL QUESTIONS ANSWERED. PATIENT CONTACTING DAUGHTER IN [place] FOR TRANSPORT HOME.
--- NOTE | 2019-02-20 13:00 | NUR ---
PT. DISCHARGED HOME, [id number] PICKING UP PT. AT ENTRANCE. [facility] TOOK HIM OUT TO [facility].
== END 2019-02-20 13:00 | disposition home or self-care (01) ==
LOC: ER 14:51 → MEDS 18:54
PROVIDERS: Internal Medicine; Nurse Practitioner Acute Care; Physician Assistant; ADMIT Internal Medicine
DX: N17.9 Acute kidney failure, unspecified (principal); E86.0 Dehydration; R55 Syncope and collapse; R42 Dizziness and giddiness; I13.0 Hypertensive heart and chronic kidney disease with heart failure and stage 1 through stage 4 chronic kidney disease, or unspecified chronic kidney disease; I50.22 Chronic systolic (congestive) heart failure; N18.4 Chronic kidney disease, stage 4 (severe); I25.10 Atherosclerotic heart disease of native coronary artery without angina pectoris; I48.20 Chronic atrial fibrillation, unspecified; F32.9 Major depressive disorder, single episode, unspecified; M10.9 Gout, unspecified; G47.33 Obstructive sleep apnea (adult) (pediatric); Z95.5 Presence of coronary angioplasty implant and graft; Z91.012 Allergy to eggs; Z88.8 Allergy status to other drugs, medicaments and biological substances; Z79.899 Other long term (current) drug therapy; Z79.02 Long term (current) use of antithrombotics/antiplatelets
CPT/HCPCS: 36415; 71046; 80048; 80053; 81003; 82550; 82553; 83690; 83735; 83880; 84484; 85025; 93005; 93010; 99285-25; G0378; J7030; J7040

== ENCOUNTER → 2019-03-01 | Outpatient (CLI) | payer OTHER ==
[~2019-03-01] MED LIST changes: +ALLO300 PO; +Aldactone50 MG PO; +Bumetanide2 MG PO; +ELIQUIS2.5 MG PO; +Hydrochloroth12.5 MG PO; +Isosorbide Mono60 MG PO; +Lipitor80 MG PO; +METO50ER PO
[2019-03-01 20:05] LABS: BASOPHILS ABSOLUTE AUTO 0.09 K/mm3 (0.00-0.23); BASOPHILS PERCENT AUTO 1 % (0-2); EOSINOPHILS ABSOLUTE AUTO 0.15 K/mm3 (0.00-0.68); EOSINOPHILS PERCENT AUTO 2 % (0-6); Hematocrit 43.3 % (37.0-53.0); Hemoglobin 14.1 g/dL (13.5-17.5); IMMATURE GRAN ABSOLUTE AUTO 0.03 K/mm3 (0.00-0.10); IMMATURE GRAN PERCENT AUTO 0 % (0-1); LYMPHOCYTES ABSOLUTE AUTO 1.58 K/mm3 (0.84-5.20); LYMPHOCYTES PERCENT AUTO 22 % (21-46); MONOCYTES ABSOLUTE AUTO 1.02 K/mm3 (0.16-1.47); MONOCYTES PERCENT AUTO 14 % (4-13); Mean Corpuscular HGB 32.3 pg (26.0-34.0); Mean Corpuscular HGB Conc 32.6 g/dL (31.5-36.5); Mean Corpuscular Volume 99 fL (80-100); Mean Platelet Volume 10.7 fL (9.1-12.4); NEUTROPHILS ABSOLUTE AUTO 4.44 K/mm3 (1.96-9.15); NEUTROPHILS PERCENT AUTO 61 % (41-73); Platelet Count 234 K/mm3 (150-400); RDW Coefficient Variation 15.2 % (11.7-14.2); RDW Standard Deviation 55.6 fL (35.1-46.3); Red Blood Cell Count 4.37 M/mm3 (4.30-5.90); White Blood Cell Count 7.31 K/mm3 (4.00-11.30)
[2019-03-01 20:19] LABS: Albumin, Blood 3.5 g/dL (3.4-5.0); Albumin/Globulin Ratio 0.8 (0.8-1.8); Bilirubin, Total 0.6 mg/dL (0.1-1.0); Bun/Creatinine Ratio 26.4 (12.0-20.0); Calcium, Blood 8.9 mg/dL (8.5-10.1); Creatinine, Blood 1.48 mg/dL (0.60-1.20); Globulin, Blood 4.3 g/dL (2.2-4.0); Phosphorus, Blood 2.4 mg/dL (2.5-4.9); Potassium, Blood 5.3 mmol/L (3.5-5.5); Total Protein, Blood 7.8 g/dL (6.4-8.2)
== END ==
LOC: LAB 18:35 → LAB SHORT 18:35
PROVIDERS: Nurse Practitioner Family
DX: I50.9 Heart failure, unspecified (principal)
CPT/HCPCS: 80053; 84100; 85025

== ENCOUNTER → 2019-03-08 | Outpatient (CLI) | payer OTHER ==
[2019-03-08 20:32] LABS: Bun/Creatinine Ratio 23.5 (12.0-20.0); Creatinine, Blood 1.49 mg/dL (0.60-1.20); Potassium, Blood 4.8 mmol/L (3.5-5.5)
== END | disposition home or self-care (01) ==
LOC: LAB 18:00 → LAB SHORT 18:00
PROVIDERS: Nurse Practitioner Family
DX: I50.9 Heart failure, unspecified (principal)
CPT/HCPCS: 80048

== ENCOUNTER → 2019-04-12 | Outpatient (CLI) | payer OTHER ==
[2019-04-12 19:38] LABS: BASOPHILS ABSOLUTE AUTO 0.06 K/mm3 (0.00-0.23); BASOPHILS PERCENT AUTO 1 % (0-2); EOSINOPHILS ABSOLUTE AUTO 0.11 K/mm3 (0.00-0.68); EOSINOPHILS PERCENT AUTO 2 % (0-6); Hematocrit 44.2 % (37.0-53.0); Hemoglobin 14.1 g/dL (13.5-17.5); IMMATURE GRAN ABSOLUTE AUTO 0.01 K/mm3 (0.00-0.10); IMMATURE GRAN PERCENT AUTO 0 % (0-1); LYMPHOCYTES ABSOLUTE AUTO 0.84 K/mm3 (0.84-5.20); LYMPHOCYTES PERCENT AUTO 13 % (21-46); MONOCYTES ABSOLUTE AUTO 0.92 K/mm3 (0.16-1.47); MONOCYTES PERCENT AUTO 14 % (4-13); Mean Corpuscular HGB 32.6 pg (26.0-34.0); Mean Corpuscular HGB Conc 31.9 g/dL (31.5-36.5); Mean Corpuscular Volume 102 fL (80-100); Mean Platelet Volume 10.6 fL (9.1-12.4); NEUTROPHILS PERCENT AUTO 71 % (41-73); Platelet Count 261 K/mm3 (150-400); RDW Coefficient Variation 15.6 % (11.7-14.2); RDW Standard Deviation 59.1 fL (35.1-46.3); Red Blood Cell Count 4.32 M/mm3 (4.30-5.90); White Blood Cell Count 6.64 K/mm3 (4.00-11.30)
[2019-04-12 19:56] LABS: Albumin, Blood 3.7 g/dL (3.4-5.0); Albumin/Globulin Ratio 0.8 (0.8-1.8); Bilirubin, Total 1.5 mg/dL (0.1-1.0); Bun/Creatinine Ratio 16.9 (12.0-20.0); Calcium, Blood 8.9 mg/dL (8.5-10.1); Creatinine, Blood 1.36 mg/dL (0.60-1.20); Globulin, Blood 4.6 g/dL (2.2-4.0); Potassium, Blood 3.5 mmol/L (3.5-5.5); Total Protein, Blood 8.3 g/dL (6.4-8.2)
== END | disposition home or self-care (01) ==
LOC: LAB SHORT 12:30 → LAB 12:30
PROVIDERS: Nurse Practitioner Family
DX: N17.9 Acute kidney failure, unspecified (principal)
CPT/HCPCS: 80053; 85025

== ENCOUNTER → 2019-07-05 | Outpatient (CLI) | payer OTHER ==
[2019-07-05 17:58] LABS: Anion Gap 5 mmol/L (6-16); Blood Urea Nitrogen 25 mg/dL (8-24); Bun/Creatinine Ratio 23.1 (12.0-20.0); CO2, Blood 30 mmol/L (21-32); Chloride, Blood 102 mmol/L (98-108); Creatinine, Blood 1.08 mg/dL (0.60-1.20); Glomerular Filtration Rate >60 (60-); Glucose, Blood 98 mg/dL (70-99); Potassium, Blood 3.2 mmol/L (3.5-5.5); Sodium, Blood 137 mmol/L (136-145)
== END ==
LOC: LAB SHORT 16:16
PROVIDERS: Nurse Practitioner Family
DX: I50.9 Heart failure, unspecified (principal)
CPT/HCPCS: 80048